=== PATIENT | male | born 1930 | race Caucasian/White ===

== ENCOUNTER 2016-11-19 11:11 | Inpatient (IN) ==
[2016-11-19 12:36] VITALS: BMI 27.6
[2016-11-19] MEDS ORDERED: TYLENOL PO PRN (13:48)
[2016-11-19] MEDS ORDERED: MORPHINE 4 MG/ML SYRINGE IVP PRN (13:48)
[2016-11-19] MEDS ORDERED: NITROSTAT SL PRN (13:48)
[2016-11-19] MEDS ORDERED: ATROPINE SULFATE PFS IVP PRN (13:48)
[2016-11-19] MEDS ORDERED: VISTARIL INJ IM PRN (13:48)
[2016-11-19 14:17] LABS: BASOPHILS % (AUTO) 0.2 % (0.0-3.0); EOSINOPHILS # (AUTO) 0.1 K/ul (0.0-0.7); EOSINOPHILS % (AUTO) 1.3 % (0.0-7.0); HEMATOCRIT 31.2 % (42.0-52.0); HEMOGLOBIN 10.6 g/dl (14.0-18.0); IMMATURE GRANULOCYTE % (AUTO) 1.1 % (0.0-5.0); LYMPHOCYTES # (AUTO) 0.9 K/uL (0.60-3.4); LYMPHOCYTES % (AUTO) 13.9 (10.0-50.0); MEAN CORPUSCULAR VOLUME 97.2 fl (80.0-94.0); MONOCYTES # (AUTO) 0.7 K/uL (0.4-2.0); MONOCYTES % (AUTO) 10.2 (0-10); NEUTROPHILS # (AUTO) 4.7 K/ul (2.0-6.9); NEUTROPHILS % (AUTO) 73.3; PLATELET COUNT 195 10^3/uL (140-440); RED BLOOD COUNT 3.21 10^6/ul (4.70-6.10); WHITE BLOOD COUNT 6.35 K/ul (4.2-10.2)
[2016-11-19 14:39] LABS: ALBUMIN 2.9 g/dL (3.4-5.0); ALBUMIN/GLOBULIN RATIO 0.73; ANION GAP 14.4; BILIRUBIN,TOTAL 0.31 mg/dL (0.00-1.20); BUN/CREATININE RATIO 9.78; CALCIUM 9.2 mg/dL (8.2-10.2); POTASSIUM 4.4 mmol/L (3.5-5.1); TOTAL PROTEIN 6.9 g/dL (5.8-8.1)
[2016-11-19 14:44] LABS: CREATININE 4.7 mg/dL (0.60-1.10)
[2016-11-19] MEDS: DEXTROSE 5%-1/2NS IV SOLUTION 1,000 ML IV SCH (15:17)
[2016-11-19] MEDS: ROCEPHIN 1 GM in SODIUM CHLORIDE 50 ML IV SCH (15:17)
[2016-11-19] MEDS: SOLU-CORTEF 100 MG IVP SCH ×2 (15:18→20:44)
[2016-11-19] MEDS: ZOFRAN 4 MG/2 ML IVP SCH ×2 (15:18→17:42)
[2016-11-19 16:27] LABS: TROPONIN I 0.052 ng/ml (0.0000-0.4000)
[2016-11-19] MEDS: PRED FORTE 1% OPTH SOL OP SCH ×2 (16:27→20:45)
--- NOTE | 2016-11-19 16:33 | DI ---
Exam: Single x-ray of the chest. Comparison: CTA thorax performed 11/02/2007. Chest x-ray performed 12/19/2015. Reason for exam: Congestion. FINDINGS: Parenchymal changes are seen consistent with chronic lung disease. There are innumerable pulmonary micronodules seen throughout the lung parenchyma with blunting of the left costophrenic a ngle. The cardiac silhouette is unchanged. Impression: 1. Similar appearing innumerable pulmonary micronodules seen throughout the parenchyma. Differenti al includes infectious, inflammatory, granulomatous, and neoplastic etiologies. If clinical concern exists, CT exam of the chest with intravenous contrast performed. 2. Blunting of the left costophrenic angle likely atelectasis or pneumonia.
[2016-11-19] MEDS: DUONEB NEB SCH ×2 (16:55→23:21)
[2016-11-19] MEDS ORDERED: ALBUTEROL 0.083% NEB NEB SCH (17:00)
[2016-11-19] MEDS: HUMULIN R SUBCUT PRN ×2 (17:34→22:48)
[2016-11-19 17:56] LABS: ADD URINE MICROSCOPIC YES; BILIRUBIN,URINE Negative (NEGATIVE); KETONES,URINE Negative (NEGATIVE); LEUKOCYTE ESTERASE ,URINE Negative (NEGATIVE); NITRITE,URINE Negative (NEGATIVE); PROTEIN,URINE 2+ (NEGATIVE); URINE, BLOOD 1+ (NEGATIVE)
[2016-11-19] MEDS: SODIUM BICARBONATE PO SCH (20:45)
[2016-11-19] MEDS: XALATAN OP SCH (20:45)
[2016-11-19] MEDS: ALPHAGAN P 0.15% OP SCH (20:45)
[2016-11-19] MEDS: LEVEMIR SUBCUT SCH (20:45)
[2016-11-19] MEDS: COSOPT OP SCH (20:46)
[2016-11-19] MEDS ORDERED: INSULIN DETEMIR 20 UNIT SQ SCH (21:00)
[2016-11-19 23:00] LABS: TROPONIN I 0.054 ng/ml (0.0000-0.4000)
[2016-11-20] MEDS: ZOFRAN 4 MG/2 ML IVP SCH ×4 (01:21→17:20)
[2016-11-20 04:39] LABS: BASOPHILS % (AUTO) 0.2 % (0.0-3.0); HEMATOCRIT 31.5 % (42.0-52.0); HEMOGLOBIN 10.6 g/dl (14.0-18.0); IMMATURE GRANULOCYTE % (AUTO) 0.9 % (0.0-5.0); LYMPHOCYTES # (AUTO) 0.6 K/uL (0.60-3.4); LYMPHOCYTES % (AUTO) 7.3 (10.0-50.0); MEAN CORPUSCULAR HEMOGLOBIN 32.8 pg (27.0-31.0); MEAN CORPUSCULAR HGB CONC 33.7 (31.8-35.4); MEAN CORPUSCULAR VOLUME 97.5 fl (80.0-94.0); MONOCYTES # (AUTO) 0.4 K/uL (0.4-2.0); MONOCYTES % (AUTO) 4.4 (0-10); NEUTROPHILS # (AUTO) 7.1 K/ul (2.0-6.9); NEUTROPHILS % (AUTO) 87.2; PLATELET COUNT 202 10^3/uL (140-440); RED BLOOD COUNT 3.23 10^6/ul (4.70-6.10); WHITE BLOOD COUNT 8.12 K/ul (4.2-10.2)
[2016-11-20] MEDS: DUONEB NEB SCH ×4 (05:10→23:26)
[2016-11-20 05:13] LABS: ALBUMIN 2.7 g/dL (3.4-5.0); ALBUMIN/GLOBULIN RATIO 0.68; ANION GAP 18.7; BILIRUBIN,TOTAL 0.27 mg/dL (0.00-1.20); BUN/CREATININE RATIO 10.61; CALCIUM 8.7 mg/dL (8.2-10.2); POTASSIUM 4.7 mmol/L (3.5-5.1); TOTAL PROTEIN 6.7 g/dL (5.8-8.1)
[2016-11-20 05:14] LABS: CREATININE 4.71 mg/dL (0.60-1.10)
[2016-11-20] MEDS: PROTONIX PO SCH (05:37)
[2016-11-20] MEDS: SOLU-CORTEF 100 MG IVP SCH ×3 (05:37→20:41)
[2016-11-20] MEDS: HUMULIN R SUBCUT PRN ×4 (05:38→20:44)
[2016-11-20] MEDS: DEXTROSE 5%-1/2NS IV SOLUTION 1,000 ML IV SCH ×2 (05:38→20:46)
[2016-11-20] MEDS ORDERED: HUMALOG MIX 75-25 SUBCUT SCH (08:00)
[2016-11-20] MEDS: COSOPT OP SCH ×3 (08:31→20:45)
[2016-11-20] MEDS: ALPHAGAN P 0.15% OP SCH ×2 (08:33→20:44)
[2016-11-20] MEDS: PRED FORTE 1% OPTH SOL OP SCH ×4 (08:33→20:45)
[2016-11-20] MEDS: HUMALOG SUBCUT SCH (08:38)
[2016-11-20] MEDS: FLOMAX PO SCH (08:38)
[2016-11-20] MEDS: ROCEPHIN 1 GM in SODIUM CHLORIDE 50 ML IV SCH (08:38)
[2016-11-20] MEDS: FOLIC ACID PO SCH (08:39)
[2016-11-20] MEDS: BALANCED B-100 PO SCH (08:39)
[2016-11-20] MEDS: ASPIRIN EC PO SCH (08:39)
[2016-11-20] MEDS: SODIUM BICARBONATE PO SCH ×2 (08:40→20:40)
[2016-11-20] MEDS: VITAMIN D PO SCH (08:40)
[2016-11-20] MEDS: ARAVA PO SCH ×2 (08:40→08:44)
[2016-11-20] MEDS: COZAAR PO SCH (08:41)
[2016-11-20] MEDS ORDERED: [UNRECOGNIZED DRUG - OTHER] PO SCH (09:00)
[2016-11-20] MEDS ORDERED: ASPIRIN EC PO SCH (09:00)
[2016-11-20] MEDS ORDERED: LEFLUNOMIDE 20 MG PO SCH (09:00)
[2016-11-20] MEDS ORDERED: VIT B COMP PO SCH (09:00)
[2016-11-20] MEDS ORDERED: FOLIC ACID 400 MG PO SCH (09:00)
[2016-11-20] MEDS ORDERED: CALCIUM CARB PO SCH (09:00)
[2016-11-20] MEDS ORDERED: NON-FORMULARY MEDICATION (Losartan Potassium 50 MG) PO SCH (09:00)
[2016-11-20] MEDS ORDERED: LASIX TAB PO SCH (09:00)
[2016-11-20] MEDS ORDERED: NON-FORMULARY MEDICATION (Cholecalciferol (Vitamin D3) [Vitamin D3] 2,000 UNIT) PO SCH (09:00)
--- NOTE | 2016-11-20 09:19 | PCM.PROG ---
Attending Provider: ATTENDING PROVIDER: Dr. DANAE TRINH DATE OF SERVICE: 11/20/16 SUBJECTIVE: This 86 year old WHITE/ M was hospitalized 11/19/16. The patient is seen with Monse, Nurse Practitioner. The patient is lying in bed, is alert. He states breathing is better today. No nausea this morning. The patient ate supper and lunch yesterday. Kidney functions still elevated. REVIEW OF SYSTEMS: CONSTITUTIONAL: Weakness. No night sweats. No fever or chills. HEENT: Eyes: No visual changes. No eye pain. No eye discharge. ENT: No runny nose. No epistaxis. No sinus pain. No odynophagia. No congestion. RESPIRATORY: Cough and congestion. No hemoptysis. No shortness of breath. CARDIOVASCULAR: No angina symptoms. No CHF symptoms. No atypical chest pain for CAD. No palpitations. No orthopnea.. GASTROINTESTINAL: No abdominal pain. No nausea or vomiting. No diarrhea or constipation. No hematemesis. No hematochezia. GENITOURINARY: No urgency. No frequency. No dysuria. No hematuria. No obstructive symptoms. No discharge. No pain. No significant abnormal bleeding. MUSCULOSKELETAL: No musculoskeletal pain; no joint swelling. NEUROLOGICAL: Awake, alert, oriented to time, place and person. No headache. No neck pain. No syncope. No seizures. No dizziness. PSYCHIATRIC: Not anxious. No depression. No suicidal thoughts. No homicidal thoughts. SKIN: No rash. No lesions. No wounds. ENDOCRINE: No unexplained weight loss. No weight gain. HEMATOLOGIC/LYMPHATIC: No anemia. No purpura. No petechiae. No prolonged or excessive bleeding. No palpable lymph nodes. PHYSICAL EXAMINATION: GENERAL: The patient is awake, alert and oriented, lying in bed in no distress. VITAL SIGNS: Temperature 96.7 F, Pulse 78, Respiratory Rate 18, BP 150/77, Pulse Ox 96% HEENT: Head normocephalic, atraumatic. Eyes: Extraocular muscles are intact. Pupils are equal, round and reactive to light and accommodation. Ears: No lesions. Nose appeared normal. Throat: No exudate or erythema. NECK: Supple. No JVD, no carotid bruit. No lymphadenopathy or thyromegaly. LUNGS: Diminished breath sounds with faint expiratory wheezing bilaterally; rales on the left. Percussion note normal. Chest symmetrical. HEART: S1, S2, no S3. Grade I/ systolic murmur. No cyanosis or clubbing. No ascites. Pulses: Dorsalis pedis and posterior tibial pulses +1 to +2 both sides. ABDOMEN: Soft. Non-tender. Bowel sounds active. No CVA tenderness. No mass felt. EXTREMITIES: No edema. Full range of motion of all extremities, equal. NEUROLOGIC: No focal deficit. Cranial nerves II through XII are grossly intact. No headache, no double vision or headache. SKIN: Not dry. Intact. Turgor-normal. LYMPHATIC: No palpable lymph nodes/no lymphedema. MUSCULOSKELETAL: Normal joints with no swelling. Muscle tone is normal. LAB REVIEW: 11/20/16 04:30 11/20/16 04:30 11/20/16 04:30: WBC 8.12, RBC 3.23 L, Hgb 10.6 L, Hct 31.5 L, MCV 97.5 H, MCH 32.8 H, MCHC 33.7, RDW Coeff of Meagan 12.7, Plt Count 202, Immature Gran % (Auto) 0.9, Neut % (Auto) 87.2, Lymph % (Auto) 7.3 L, [place] % (Auto) 4.4, Eos % (Auto) 0.0, Baso % (Auto) 0.2, Immature Gran # (Auto) 0.1, Neut # 7.1 H, Lymph # 0.6, [place] # 0.4, Eos # 0.0, Baso # 0.0, Sodium 137, Potassium 4.7, Chloride 102, Carbon Dioxide 21 L, Anion Gap 18.7, BUN 50 H, Creatinine 4.71 H*, Estimated GFR (MDRD) 12.00, BUN/Creatinine Ratio 10.61, Glucose 348 H D, Calcium 8.7, Total Bilirubin 0.27, AST 10 L, ALT 11 L, Alkaline Phosphatase 42 L, Total Protein 6.7, Albumin 2.7 L, Globulin 4.0, Albumin/Globulin Ratio 0.68 11/19/16 22:30: Total Creatine Kinase 81, Myoglobin 242, Troponin I 0.0540 11/19/16 17:45: Urine Color Yellow, Urine Clarity Clear, Urine pH 7.0, Ur Specific [place] 1.020, Urine Protein 2+, Urine Glucose (UA) 1+, Urine Ketones Negative, Urine Blood 1+, Urine Nitrite Negative, Urine Bilirubin Negative, Urine Urobilinogen 0.2, Ur Leukocyte Esterase Negative, Urine Microscopic RBC 2- 5, Ur Squamous Epith Cells Not present 11/19/16 14:00: WBC 6.35, RBC 3.21 L, Hgb 10.6 L, Hct 31.2 L, MCV 97.2 H, MCH 33.0 H, MCHC 34.0, RDW Coeff of [place] 12.9, Plt Count 195, Immature Gran % (Auto) 1.1, Neut % (Auto) 73.3, Lymph % (Auto) 13.9, [place] % (Auto) 10.2 H, Eos % (Auto ) 1.3, Baso % (Auto) 0.2, Immature Gran # (Auto) 0.1, Neut # 4.7, Lymph # 0.9, [place] # 0.7, Eos # 0.1, Baso # 0.0, Sodium 139, Potassium 4.4, Chloride 105, Carbon Dioxide 24, Anion Gap 14.4, BUN 46 H, Creatinine 4.70 H*, Estimated GFR ( MDRD) 12.00, BUN/Creatinine Ratio 9.78, Glucose 123 H, Calcium 9.2, Total Bilirubin 0.31, AST 14 L, ALT 12, Alkaline Phosphatase 47 L, Total Creatine Kinase 99, Myoglobin 330, Troponin I 0.0520, Total Protein 6.9, Albumin 2.9 L, Globulin 4.0, Albumin/Globulin Ratio 0.73 ASSESSMENT: 1. Pneumonia left lobe 2. Dehydration 3. Acute on chronic renal failure PLAN: 1. Hold Lasix today 2. CT scan of chest without contrast 3. Encourage fluids 4. Elevate legs Plan and coordination of the patient's care discussed in the presence of Die Casting Machine Operator and nurse. CONDITION: Stable SCRIBED BY: DAVID TERRY Claim Processor scribed while in presence of service performed by Dr. ADNAE TRINH/MONSE LYNCH APRN on 11/20/16 ([id number])
--- NOTE | 2016-11-20 13:15 | HP ---
DATE OF SERVICE: 11/19/16 HISTORY OF PRESENT ILLNESS: This is an 86-year-old male presented with cough times two weeks, shortness of breath, congestion, vomited this a.m., low grade temperature at home. No appetite. The patient was seen yesterday with acute bronchitis on Levaquin 250 mg. PAST MEDICAL HISTORY: 1. Diabetes mellitus Type 2 2. Rheumatoid arthritis 3. BPH 4. CKD 5. COPD 6. Anemia 7. Atrial fibrillation 8. CA prostate with radiation 2005 PAST SURGICAL HISTORY: 1. Back surgery 2. Eye surgery 3. Gallbladder, 2007 4. Appendix, 2007 REVIEW OF SYSTEMS: CONSTITUTIONAL: Fever, fatigue. HEENT: No sinus drainage, no sore throat. RESPIRATORY: Cough with yellow sputum. CARDIOVASCULAR: Positive for shortness of breath. No atypical chest pain for coronary artery disease. No angina, CHF symptoms, or palpitations. GASTROINTESTINAL: Nausea. No melena or abdominal pain. No GERD. GENITOURINARY: No hematuria, no prostatism, no polyuria. FURNITURE POLISHER: No blackout, no dizziness, no headache, no double vision. MUSCULOSKELETAL: Osteoarthritic pain. No joint swelling. ENDOCRINE: Weight loss of 2 lbs. SKIN: Dry. No rash. PSYCHIATRIC: Not anxious, no depression, no suicidal thoughts, no homicidal thoughts. SOCIAL HISTORY: ; nonsmoker; no alcohol use. Retired [employer]. Two children. FAMILY HISTORY: Father , [place]. Mother , [place] liver, colon. Sister one , [place] , diabetes mellitus. MEDICATIONS: (HOME) 1. Flomax 0.4 mg p.o. daily 2. Leflunomide 20 mg p.o. daily 3. Latanoprost 2.5 mL one drop OP bedtime 4. Sodium Bicarbonate 650 mg p.o. b.i.d. 5. Levemir Flex touch 6. Alphagan one drop OP b.i.d. 7. NovoLog Mix 70-30 (Flexpen) 20 units SQ q.d a.c. 8. Lasix 40 mg p.o. daily 9. Pred Forte 1 mL OP q.i.d. 10. Dorzolamide-Timolol eye drops one drop right eye b.i.d. 11. Cozaar 50 mg p.o. daily 12. Protonix 40 mg p.o. q.d a.c. 13. Vitamin B Comp and C/Calcium one tab p.o. daily 14. Vitamin D3 2,000 unit p.o. daily 15. Aspirin 81 mg p.o. daily 16. Folic Acid 400 mg p.o. daily ALLERGIES: LIPITOR, GABAPENTIN, OXYCODONE (VOMITING), PHYSICAL EXAMINATION: V/S: Pulse 82, B/P 112/62, temperature 97.5, 02 sat 94% on 02 2L/NC. Height 6'0 ", BMI 27.9, weight 206. GENERAL APPEARANCE: Oriented times three. Pallor positive. HEENT: Nasal congestion. NECK: No JVP, no bruits. RESPIRATORY: Lungs - decreased breath sounds, rales left lower lobe. CARDIOVASCULAR: Grade II/ murmur. S1, S2, no S3. No cyanosis, clubbing. No ascites. GI/ABDOMEN: Tenderness. Bowel sounds are active. EXTREMITIES: +1 pitting edema, pulses +1, equal. FURNITURE POLISHER: Deep tendon reflexes, sensory, motor and gait all normal. RECTAL/PROSTATE: Prostate 06/29 (less than 0.1). Colonoscopy 03/29 Dr. Delacruz. LABS: Sodium 139, potassium 4.4, BUN 46, creatinine 4.7, glucose 123, AST 14, ALT 12, protein 6.9, albumin 2.9, globulin 4.0, alkaline phosphatase 47. White count 6.3 , red blood cells 3.2, hemoglobin 10.6, hematocrit 31.2. ASSESSMENT: 1. PNEUMONITIS, LEFT 2. SHORTNESS OF BREATH 3. VOMITING 4. DEHYDRATION 5. CHRONIC RENAL FAILURE 7. RIGHT-SIDED PLEURITIC PAIN 8. CHRONIC BRONCHITIS 9. COPD 10. CHF 11. HISTORY OF PE - DR. ANAYA 12. DIABETES MELLITUS TYPE 2, A1C 7.1 ON 08/30 13. ANEMIA 14. PROSTATE CANCER 15. CHRONIC KIDNEY DISEASE STAGE 4 16. NEUROPATHY 17. DYSLIPIDEMIA 18. HISTORY OF BLADDER CA PLAN: 1. Admit 2. Elevate legs 3. Routine telemetry orders 4. Chest x-ray 5. Rocephin 1 gm IV q.24hr 6. CBC, CMP now and daily 7. 02 @ 2L p.r.n. 8. No ABGs (patient refusing) 9. Zofran 4 mg IV now and 6 hourly 10. Continue all home medications except Levaquin and Prednisone 11. Solu-Cortef 100 mg IV now and 8 hourly 12. Accu-Cheks with sliding scale 13. Blood cultures x2 14. Sputum cultures times two TIME SPENT: More than 70 minutes. MTDD
--- NOTE | 2016-11-20 14:45 | CT ---
EXAM: CT chest without contrast. HISTORY: Shortness of breath. Cough for 3 weeks. Histoplasmosis. COMPARISON: Radiograph [address] 07/12/2011. TECHNIQUE: Multiple axial images of the chest were obtained without intravenous contrast. Images w ere reformatted in the sagittal and coronal planes. FINDINGS: Evaluation for lymphadenopathy is limited due to lack of intravenous contrast per heart s ize is normal. Atherosclerotic calcifications are present. There is no pericardial effusion. Innumerable tiny noncalcified nodules seen throughout both lungs which have been present since 2011. New anteromedial left upper lobe nodule measures up to 1.8 x 0.8 cm on axial image 18. New anteri or right middle lobe nodule measures 2.7 x 1.9 cm on axial image 30. Tiny pleural effusion seen augustin aterally. No pneumothorax identified. Limited images of the upper abdomen demonstrate no acute abnormality. Degenerative changes present in the spine. IMPRESSION: New left upper lobe and right middle lobe nodules which could be infectious, inflammatory or neoplas tic. Innumerable bilateral pulmonary nodules are otherwise stable since 2011. Follow-up chest CT w ithin 3 months recommended for reassessment
[2016-11-20] MEDS: LEVEMIR SUBCUT SCH (20:43)
[2016-11-20] MEDS: XALATAN OP SCH (20:45)
[2016-11-21] MEDS: ZOFRAN 4 MG/2 ML IVP SCH ×3 (01:36→14:25)
[2016-11-21 04:55] LABS: BASOPHILS % (AUTO) 0.1 % (0.0-3.0); HEMATOCRIT 29.9 % (42.0-52.0); HEMOGLOBIN 10.1 g/dl (14.0-18.0); IMMATURE GRANULOCYTE % (AUTO) 1.4 % (0.0-5.0); LYMPHOCYTES # (AUTO) 0.7 K/uL (0.60-3.4); LYMPHOCYTES % (AUTO) 8.5 (10.0-50.0); MEAN CORPUSCULAR HEMOGLOBIN 32.8 pg (27.0-31.0); MEAN CORPUSCULAR HGB CONC 33.8 (31.8-35.4); MEAN CORPUSCULAR VOLUME 97.1 fl (80.0-94.0); MONOCYTES # (AUTO) 0.5 K/uL (0.4-2.0); NEUTROPHILS # (AUTO) 6.7 K/ul (2.0-6.9); PLATELET COUNT 175 10^3/uL (140-440); RED BLOOD COUNT 3.08 10^6/ul (4.70-6.10); WHITE BLOOD COUNT 7.97 K/ul (4.2-10.2)
[2016-11-21] MEDS: DUONEB NEB SCH ×4 (05:04→22:55)
[2016-11-21 05:20] LABS: ALBUMIN 2.7 g/dL (3.4-5.0); ALBUMIN/GLOBULIN RATIO 0.79; ANION GAP 15.4; BILIRUBIN,TOTAL 0.23 mg/dL (0.00-1.20); BUN/CREATININE RATIO 11.33; CALCIUM 8.6 mg/dL (8.2-10.2); POTASSIUM 4.4 mmol/L (3.5-5.1); TOTAL PROTEIN 6.1 g/dL (5.8-8.1)
[2016-11-21 05:21] LABS: CREATININE 4.06 mg/dL (0.60-1.10)
[2016-11-21] MEDS: SOLU-CORTEF 100 MG IVP SCH ×3 (05:28→20:47)
[2016-11-21] MEDS: HUMULIN R SUBCUT PRN ×2 (05:28→21:04)
[2016-11-21] MEDS: PROTONIX PO SCH (05:29)
[2016-11-21] MEDS ORDERED: SODIUM CHLORIDE 1,000 ML IV SCH (08:30)
[2016-11-21] MEDS: SODIUM BICARBONATE PO SCH ×2 (08:33→21:08)
[2016-11-21] MEDS: COSOPT OP SCH ×2 (08:34→21:11)
[2016-11-21] MEDS: FLOMAX PO SCH (08:34)
[2016-11-21] MEDS: ARAVA PO SCH (08:34)
[2016-11-21] MEDS: COZAAR PO SCH (08:34)
[2016-11-21] MEDS: FOLIC ACID PO SCH (08:34)
[2016-11-21] MEDS: ALPHAGAN P 0.15% OP SCH ×2 (08:34→21:11)
[2016-11-21] MEDS: ASPIRIN EC PO SCH (08:34)
[2016-11-21] MEDS: VITAMIN D PO SCH (08:34)
[2016-11-21] MEDS: BALANCED B-100 PO SCH (08:34)
[2016-11-21] MEDS: PRED FORTE 1% OPTH SOL OP SCH ×4 (08:34→21:11)
[2016-11-21] MEDS: HUMALOG SUBCUT SCH (08:38)
--- NOTE | 2016-11-21 09:19 | PCM.PROG ---
Attending Provider: ATTENDING PROVIDER: Dr. DANAE TRINH DATE OF SERVICE: 11/21/16 SUBJECTIVE: This 86 year old WHITE/ M was hospitalized 11/19/16. The patient is seen with Monse, Nurse Practitioner. The patient is sitting up in bed, is alert. He reports he is still coughing. He is tired. Kidney function is somewhat improved today. Sputum culture and sensitivity positive for E. coli with ESBL I will change IV antibiotics to Zosyn. REVIEW OF SYSTEMS: CONSTITUTIONAL: Weakness, fatigue. No night sweats. No fever or chills. HEENT: Eyes: No visual changes. No eye pain. No eye discharge. ENT: No runny nose. No epistaxis. No sinus pain. No odynophagia. No congestion. RESPIRATORY: Cough, nonproductive. No hemoptysis. No shortness of breath. CARDIOVASCULAR: No angina symptoms. No CHF symptoms. No atypical chest pain for CAD. No palpitations. No orthopnea.. GASTROINTESTINAL: No abdominal pain. No nausea or vomiting. No diarrhea or constipation. No hematemesis. No hematochezia. GENITOURINARY: No urgency. No frequency. No dysuria. No hematuria. No obstructive symptoms. No discharge. No pain. No significant abnormal bleeding. MUSCULOSKELETAL: No musculoskeletal pain; no joint swelling. NEUROLOGICAL: Awake, alert, oriented to time, place and person. No headache. No neck pain. No syncope. No seizures. No dizziness. PSYCHIATRIC: Not anxious. No depression. No suicidal thoughts. No homicidal thoughts. SKIN: No rash. No lesions. No wounds. ENDOCRINE: No unexplained weight loss. No weight gain. HEMATOLOGIC/LYMPHATIC: No anemia. No purpura. No petechiae. No prolonged or excessive bleeding. No palpable lymph nodes. PHYSICAL EXAMINATION: GENERAL: The patient is awake, alert and oriented, lying in bed in no distress. VITAL SIGNS: Temperature 97.5 F, Pulse 74, Respiratory Rate 16, BP 134/77, Pulse Ox 99% HEENT: Head normocephalic, atraumatic. Eyes: Extraocular muscles are intact. Pupils are equal, round and reactive to light and accommodation. Ears: No lesions. Nose appeared normal. Throat: No exudate or erythema. NECK: Supple. No JVD, no carotid bruit. No lymphadenopathy or thyromegaly. LUNGS: Diminished breath sounds with faint wheeze on the left. Percussion note normal. Chest symmetrical. HEART: Regular rate and rhythm. S1, S2, no S3. Grade I/ murmur. No cyanosis or clubbing. No ascites. Pulses: Dorsalis pedis and posterior tibial pulses +1 to +2 both sides. ABDOMEN: Soft. Non-tender. Bowel sounds active. No CVA tenderness. No mass felt. EXTREMITIES: No edema. Full range of motion of all extremities, equal. NEUROLOGIC: No focal deficit. Cranial nerves II through XII are grossly intact. No headache, no double vision or headache. SKIN: Not dry. Intact. Turgor-normal. LYMPHATIC: No palpable lymph nodes/no lymphedema. MUSCULOSKELETAL: Normal joints with no swelling. Muscle tone is normal. LAB REVIEW: 11/21/16 04:30 11/21/16 04:30 11/21/16 04:30: WBC 7.97, RBC 3.08 L, Hgb 10.1 L, Hct 29.9 L, MCV 97.1 H, MCH 32.8 H, MCHC 33.8, RDW Coeff of [place] 12.7, Plt Count 175, Immature Gran % (Auto) 1.4, Neut % (Auto) 84.0, Lymph % (Auto) 8.5 L, [place] % (Auto) 6.0, Eos % (Auto) 0.0, Baso % (Auto) 0.1, Immature Gran # (Auto) 0.1, Neut # 6.7, Lymph # 0.7, [place] # 0.5, Eos # 0.0, Baso # 0.0, Sodium 139, Potassium 4.4, Chloride 105, Carbon Dioxide 23, Anion Gap 15.4, BUN 46 H, Creatinine 4.06 H* D, Estimated GFR (MDRD) 14.00, BUN/Creatinine Ratio 11.33, Glucose 250 H D, Calcium 8.6, Total Bilirubin 0.23, AST 9 L, ALT 11 L, Alkaline Phosphatase 44 L, Total Protein 6.1, Albumin 2.7 L, Globulin 3.4, Albumin/Globulin Ratio 0.79 ASSESSMENT: 1. Sputum positive for E. coli/ESBL 2. Pneumonia, left lobe 3. Dehydration 4. Acute on chronic renal failure PLAN: 1. D/C Rocephin 2. Zosyn 2.25 q.6 - pharmacy to dose 3. Change IV fluids to NS 75 cc/hr 4. Contact precautions Plan and coordination of the patient's care discussed in the presence of Oracle Fusion Middleware Architect and nurse. CONDITION: Stable SCRIBED BY: DAVID TERRY Toe Stapler scribed while in presence of service performed by Dr. DANAE TRINH/MONSE LYNCH APRN on 11/21/16 ([id number])
[2016-11-21] MEDS: DEXTROSE 5%-1/2NS IV SOLUTION 1,000 ML IV SCH (11:37)
[2016-11-21] MEDS: ZOSYN 2.25 GM 2.25 GM in SODIUM CHLORIDE 100 ML IV SCH ×2 (13:20→21:02)
--- NOTE | 2016-11-21 13:40 | PN ---
DATE OF SERVICE:11/20/16 SUBJECTIVE: 86 year old white male hospitalized with acute bronchitis/pneumonitis and renal failure. The patient's renal status has stayed the same with creatinine of 4.7, BUN 50. The patient's bronchitis symptoms are a lot better and he is coughing much less. PHYSICAL EXAMINATION: GENERAL: The patient's appetite has improved and he says that he is feeling better. VITAL SIGNS: Blood pressure 150/77, oxygen saturation 96% with 2 liters. HEENT: Head normocephalic, atraumatic. Eyes: Extraocular muscles are intact. Pupils are equal, round and reactive to light and accommodation. Ears: No lesions. Nose appeared normal. Throat: No exudate or erythema. NECK: Supple. No JVD, no carotid bruit. No lymphadenopathy or thyromegaly. LUNGS: More air entry. Clear to auscultation. Percussion note normal. Chest symmetrical. HEART: S1, S2, no S3. No murmurs. No cyanosis or clubbing. No ascites. Pulses: Dorsalis pedis and posterior tibial pulses +1 to +2 both sides. ABDOMEN: Soft. Nontender. Bowel sounds active. No CVA tenderness. No mass felt. EXTREMITIES: No edema. Full range of motion of all extremities, equal. NEUROLOGIC: No focal deficit. Cranial nerves II through XII are grossly intact. No headache, no double vision or headache. SKIN: Not dry. Intact. Turgor - A lot better. LYMPHATIC: No palpable lymph nodes/no lymphedema. MUSCULOSKELETAL: Normal joints with no swelling. Muscle tone is normal. CONDITION: Stable, improving. LABS: The patient grew e-coli from his sputum. The patient's e-coli is ESBL The patient was seen and examined with Nurse Practitioner. PLAN: 1. Clinically with Rocephin the patient is better so we will stick to Rocephin. TIME SPENT: More than 30 minutes. Plan and coordination of the patient's care discussed in the presence of nurse. GABRIELLE
[2016-11-21] MEDS: LEVEMIR SUBCUT SCH (21:03)
[2016-11-21] MEDS: XALATAN OP SCH (21:11)
[2016-11-22] MEDS: SOLU-CORTEF 100 MG IVP SCH ×3 (04:24→20:43)
[2016-11-22] MEDS: ZOSYN 2.25 GM 2.25 GM in SODIUM CHLORIDE 100 ML IV SCH ×3 (04:40→20:41)
[2016-11-22] MEDS: DUONEB NEB SCH ×4 (04:54→22:38)
[2016-11-22 05:28] LABS: BASOPHILS % (AUTO) 0.4 % (0.0-3.0); HEMATOCRIT 30.6 % (42.0-52.0); HEMOGLOBIN 10.3 g/dl (14.0-18.0); IMMATURE GRANULOCYTE % (AUTO) 1.8 % (0.0-5.0); LYMPHOCYTES # (AUTO) 0.9 K/uL (0.60-3.4); LYMPHOCYTES % (AUTO) 10.3 (10.0-50.0); MEAN CORPUSCULAR HEMOGLOBIN 32.5 pg (27.0-31.0); MEAN CORPUSCULAR HGB CONC 33.7 (31.8-35.4); MEAN CORPUSCULAR VOLUME 96.5 fl (80.0-94.0); MONOCYTES # (AUTO) 0.6 K/uL (0.4-2.0); MONOCYTES % (AUTO) 7.1 (0-10); NEUTROPHILS # (AUTO) 6.8 K/ul (2.0-6.9); NEUTROPHILS % (AUTO) 80.4; PLATELET COUNT 190 10^3/uL (140-440); RED BLOOD COUNT 3.17 10^6/ul (4.70-6.10); WHITE BLOOD COUNT 8.45 K/ul (4.2-10.2)
[2016-11-22 05:44] LABS: ALBUMIN 2.7 g/dL (3.4-5.0); ALBUMIN/GLOBULIN RATIO 0.77; ANION GAP 17.3; BILIRUBIN,TOTAL 0.29 mg/dL (0.00-1.20); BUN/CREATININE RATIO 13.21; CALCIUM 8.5 mg/dL (8.2-10.2); POTASSIUM 4.3 mmol/L (3.5-5.1); TOTAL PROTEIN 6.2 g/dL (5.8-8.1)
[2016-11-22] MEDS: ZOFRAN 4 MG/2 ML IVP SCH ×5 (05:44→17:24)
[2016-11-22] MEDS: PROTONIX PO SCH (05:47)
[2016-11-22 05:50] LABS: CREATININE 3.86 mg/dL (0.60-1.10)
[2016-11-22] MEDS: HUMULIN R SUBCUT PRN ×4 (05:57→21:23)
[2016-11-22] MEDS: SODIUM BICARBONATE PO SCH ×2 (09:15→20:42)
[2016-11-22] MEDS: HUMALOG SUBCUT SCH (09:16)
[2016-11-22] MEDS: BALANCED B-100 PO SCH (09:16)
[2016-11-22] MEDS: VITAMIN D PO SCH (09:16)
[2016-11-22] MEDS: ARAVA PO SCH (09:16)
[2016-11-22] MEDS: FOLIC ACID PO SCH (09:16)
[2016-11-22] MEDS: FLOMAX PO SCH (09:16)
[2016-11-22] MEDS: ASPIRIN EC PO SCH (09:16)
[2016-11-22] MEDS: COZAAR PO SCH (09:16)
[2016-11-22] MEDS: ALPHAGAN P 0.15% OP SCH ×2 (09:18→20:48)
[2016-11-22] MEDS: COSOPT OP SCH ×2 (09:18→20:46)
[2016-11-22] MEDS: PRED FORTE 1% OPTH SOL OP SCH ×4 (09:20→20:55)
[2016-11-22] MEDS: TUSSIONEX PO SCH ×2 (12:03→20:41)
[2016-11-22] MEDS: LEVEMIR SUBCUT SCH (20:42)
[2016-11-22] MEDS: XALATAN OP SCH (20:48)
[2016-11-23] MEDS: ZOFRAN 4 MG/2 ML IVP SCH ×5 (00:14→23:29)
[2016-11-23] MEDS: ZOSYN 2.25 GM 2.25 GM in SODIUM CHLORIDE 100 ML IV SCH ×3 (04:13→20:21)
[2016-11-23] MEDS: SOLU-CORTEF 100 MG IVP SCH ×2 (04:14→12:36)
[2016-11-23] MEDS: DUONEB NEB SCH ×4 (04:54→22:59)
[2016-11-23 05:24] LABS: BASOPHILS % (AUTO) 0.4 % (0.0-3.0); HEMOGLOBIN 10.6 g/dl (14.0-18.0); IMMATURE GRANULOCYTE % (AUTO) 3.6 % (0.0-5.0); LYMPHOCYTES # (AUTO) 0.7 K/uL (0.60-3.4); LYMPHOCYTES % (AUTO) 8.1 (10.0-50.0); MEAN CORPUSCULAR HEMOGLOBIN 33.2 pg (27.0-31.0); MEAN CORPUSCULAR HGB CONC 34.2 (31.8-35.4); MEAN CORPUSCULAR VOLUME 97.2 fl (80.0-94.0); MONOCYTES # (AUTO) 0.6 K/uL (0.4-2.0); MONOCYTES % (AUTO) 7.4 (0-10); NEUTROPHILS # (AUTO) 6.7 K/ul (2.0-6.9); NEUTROPHILS % (AUTO) 80.5; PLATELET COUNT 181 10^3/uL (140-440); RED BLOOD COUNT 3.19 10^6/ul (4.70-6.10); WHITE BLOOD COUNT 8.29 K/ul (4.2-10.2)
[2016-11-23] MEDS: PROTONIX PO SCH (05:29)
[2016-11-23 05:48] LABS: ALBUMIN 2.7 g/dL (3.4-5.0); ALBUMIN/GLOBULIN RATIO 0.79; ANION GAP 10.5; BILIRUBIN,TOTAL 0.23 mg/dL (0.00-1.20); BUN/CREATININE RATIO 14.43; CALCIUM 8.4 mg/dL (8.2-10.2); POTASSIUM 4.5 mmol/L (3.5-5.1); TOTAL PROTEIN 6.1 g/dL (5.8-8.1)
[2016-11-23 05:49] LABS: CREATININE 3.81 mg/dL (0.60-1.10)
[2016-11-23] MEDS: HUMULIN R SUBCUT PRN ×3 (06:06→17:11)
[2016-11-23] MEDS: BALANCED B-100 PO SCH (08:02)
[2016-11-23] MEDS: ASPIRIN EC PO SCH (08:02)
[2016-11-23] MEDS: VITAMIN D PO SCH (08:02)
[2016-11-23] MEDS: FLOMAX PO SCH (08:02)
[2016-11-23] MEDS: COZAAR PO SCH (08:02)
[2016-11-23] MEDS: ARAVA PO SCH (08:02)
[2016-11-23] MEDS: SODIUM BICARBONATE PO SCH ×2 (08:02→20:20)
[2016-11-23] MEDS: FOLIC ACID PO SCH (08:02)
[2016-11-23] MEDS: HUMALOG SUBCUT SCH (08:03)
[2016-11-23] MEDS: COSOPT OP SCH ×2 (08:04→20:27)
[2016-11-23] MEDS: TUSSIONEX PO SCH ×2 (08:04→20:19)
[2016-11-23] MEDS: ALPHAGAN P 0.15% OP SCH ×2 (08:04→20:27)
[2016-11-23] MEDS: PRED FORTE 1% OPTH SOL OP SCH ×4 (09:31→20:29)
[2016-11-23] MEDS: PREDNISONE PO SCH (17:11)
[2016-11-23] MEDS: LEVEMIR SUBCUT SCH (20:25)
[2016-11-23] MEDS: XALATAN OP SCH (20:28)
[2016-11-24] MEDS: HUMULIN R SUBCUT PRN ×4 (00:03→21:12)
[2016-11-24] MEDS: ZOSYN 2.25 GM 2.25 GM in SODIUM CHLORIDE 100 ML IV SCH ×3 (04:35→21:13)
[2016-11-24 04:45] LABS: BASOPHILS % (AUTO) 0.3 % (0.0-3.0); EOSINOPHILS % (AUTO) 0.1 % (0.0-7.0); HEMATOCRIT 30.5 % (42.0-52.0); HEMOGLOBIN 10.5 g/dl (14.0-18.0); IMMATURE GRANULOCYTE % (AUTO) 4.7 % (0.0-5.0); LYMPHOCYTES # (AUTO) 0.8 K/uL (0.60-3.4); LYMPHOCYTES % (AUTO) 9.2 (10.0-50.0); MEAN CORPUSCULAR HEMOGLOBIN 33.1 pg (27.0-31.0); MEAN CORPUSCULAR HGB CONC 34.4 (31.8-35.4); MEAN CORPUSCULAR VOLUME 96.2 fl (80.0-94.0); MONOCYTES # (AUTO) 0.9 K/uL (0.4-2.0); MONOCYTES % (AUTO) 9.7 (0-10); NEUTROPHILS # (AUTO) 6.9 K/ul (2.0-6.9); PLATELET COUNT 173 10^3/uL (140-440); RED BLOOD COUNT 3.17 10^6/ul (4.70-6.10); WHITE BLOOD COUNT 9.01 K/ul (4.2-10.2)
[2016-11-24] MEDS: DUONEB NEB SCH ×4 (05:04→23:09)
[2016-11-24 05:18] LABS: ALBUMIN 2.6 g/dL (3.4-5.0); ALBUMIN/GLOBULIN RATIO 0.79; ANION GAP 13.2; BILIRUBIN,TOTAL 0.27 mg/dL (0.00-1.20); BUN/CREATININE RATIO 14.35; CALCIUM 8.3 mg/dL (8.2-10.2); POTASSIUM 4.2 mmol/L (3.5-5.1); TOTAL PROTEIN 5.9 g/dL (5.8-8.1)
[2016-11-24 05:35] LABS: CREATININE 4.04 mg/dL (0.60-1.10)
[2016-11-24] MEDS: ZOFRAN 4 MG/2 ML IVP SCH ×4 (05:50→23:16)
[2016-11-24] MEDS: PROTONIX PO SCH (05:51)
[2016-11-24] MEDS: TUSSIONEX PO SCH ×2 (08:40→21:14)
[2016-11-24] MEDS: COZAAR PO SCH (08:41)
[2016-11-24] MEDS: ASPIRIN EC PO SCH (08:41)
[2016-11-24] MEDS: VITAMIN D PO SCH (08:41)
[2016-11-24] MEDS: ARAVA PO SCH (08:41)
[2016-11-24] MEDS: PREDNISONE PO SCH ×3 (08:41→16:45)
[2016-11-24] MEDS: BALANCED B-100 PO SCH (08:41)
[2016-11-24] MEDS: FLOMAX PO SCH (08:41)
[2016-11-24] MEDS: SODIUM BICARBONATE PO SCH ×2 (08:41→21:13)
[2016-11-24] MEDS: HUMALOG SUBCUT SCH (08:42)
[2016-11-24] MEDS: FOLIC ACID PO SCH (08:42)
[2016-11-24] MEDS: COSOPT OP SCH ×2 (08:59→21:13)
[2016-11-24] MEDS: PRED FORTE 1% OPTH SOL OP SCH ×4 (09:00→21:13)
[2016-11-24] MEDS: ALPHAGAN P 0.15% OP SCH ×2 (09:00→21:13)
--- NOTE | 2016-11-24 11:11 | PCM.PROG ---
Attending Provider: ATTENDING PROVIDER: Dr. DANAE TRINH DATE OF SERVICE: 11/24/16 SUBJECTIVE: This 86 year old WHITE/ M was hospitalized 11/19/16. The patient is seen with Monse, Nurse Practitioner. The patient is lying in bed, alert. He states he is feeling better, appetite is good. He states cough is some better after changing antibiotics, no fever. Mild shortness of breath. Echo today. REVIEW OF SYSTEMS: CONSTITUTIONAL: Weakness. No night sweats. No fever or chills. HEENT: Eyes: No visual changes. No eye pain. No eye discharge. ENT: No runny nose. No epistaxis. No sinus pain. No odynophagia. No congestion. RESPIRATORY: Cough and congestion. No hemoptysis. No shortness of breath. CARDIOVASCULAR: No angina symptoms. No CHF symptoms. No atypical chest pain for CAD. No palpitations. No orthopnea.. GASTROINTESTINAL: No abdominal pain. No nausea or vomiting. No diarrhea or constipation. No hematemesis. No hematochezia. GENITOURINARY: No urgency. No frequency. No dysuria. No hematuria. No obstructive symptoms. No discharge. No pain. No significant abnormal bleeding. MUSCULOSKELETAL: No musculoskeletal pain; no joint swelling. NEUROLOGICAL: Awake, alert, oriented to time, place and person. No headache. No neck pain. No syncope. No seizures. No dizziness. PSYCHIATRIC: Not anxious. No depression. No suicidal thoughts. No homicidal thoughts. SKIN: No rash. No lesions. No wounds. ENDOCRINE: No unexplained weight loss. No weight gain. HEMATOLOGIC/LYMPHATIC: No anemia. No purpura. No petechiae. No prolonged or excessive bleeding. No palpable lymph nodes. PHYSICAL EXAMINATION: GENERAL: The patient is awake, alert and oriented, lying in bed in no distress. VITAL SIGNS: Temperature 97.5 F, Pulse 90, Respiratory Rate 18, BP 149/75, Pulse Ox 98% HEENT: Head normocephalic, atraumatic. Eyes: Extraocular muscles are intact. Pupils are equal, round and reactive to light and accommodation. Ears: No lesions. Nose appeared normal. Throat: No exudate or erythema. NECK: Supple. No JVD, no carotid bruit. No lymphadenopathy or thyromegaly. LUNGS: Bilateral rhonchi. Percussion note normal. Chest symmetrical. HEART: S1, S2, no S3. No murmurs. No cyanosis or clubbing. No ascites. Pulses: Dorsalis pedis and posterior tibial pulses +1 to +2 both sides. ABDOMEN: Soft. Non-tender. Bowel sounds active. No CVA tenderness. No mass felt. EXTREMITIES: No edema. Full range of motion of all extremities, equal. NEUROLOGIC: No focal deficit. Cranial nerves II through XII are grossly intact. No headache, no double vision or headache. SKIN: Not dry. Intact. Turgor-normal. LYMPHATIC: No palpable lymph nodes/no lymphedema. MUSCULOSKELETAL: Normal joints with no swelling. Muscle tone is normal. LAB REVIEW: 11/24/16 04:44 11/24/16 04:44 11/24/16 04:44: Sodium 135 L, Potassium 4.2, Chloride 105, Carbon Dioxide 21 L, Anion Gap 13.2, BUN 58 H, Creatinine 4.04 H*, Estimated GFR (MDRD) 14.00, BUN/ Creatinine Ratio 14.35, Glucose 250 H, Calcium 8.3, Total Bilirubin 0.27, AST 10 L, ALT 12, Alkaline Phosphatase 40 L, Total Protein 5.9, Albumin 2.6 L, Globulin 3.3, Albumin/Globulin Ratio 0.79 11/24/16 04:44: WBC 9.01, RBC 3.17 L, Hgb 10.5 L, Hct 30.5 L, MCV 96.2 H, MCH 33.1 H, MCHC 34.4, RDW Coeff of [place] 12.8, Plt Count 173, Immature Gran % (Auto) 4.7, Neut % (Auto) 76.0, Lymph % (Auto) 9.2 L, [place] % (Auto) 9.7, Eos % (Auto) 0.1, Baso % (Auto) 0.3, Immature Gran # (Auto) 0.4, Neut # 6.9, Lymph # 0.8, [place] # 0.9, Eos # 0.0, Baso # 0.0 ASSESSMENT: 1. Sputum positive for E. coli/ESBL 2. Pneumonia, left lobe 3. Dehydration 4. Acute on chronic renal failure PLAN: 1. Echocardiogram today. 2. Continue IV Zosyn. 3. Continue nebs. 4. Possible discharge tomorrow. Plan and coordination of the patient's care discussed in the presence of Ironworker Apprentice and nurse. CONDITION: Stable SCRIBED BY: DAVID TERRY Smoking Pipe Liner scribed while in presence of service performed by Dr. DANAE TRINH/MARILOU LYNCH APRN on 11/24/16 ([id number])
--- NOTE | 2016-11-24 13:26 | PN ---
DATE OF SERVICE: 11/21/16 SUBJECTIVE: The patient was seen and examined with Nurse Practitioner and Press Operator [employer]. The patient is an 86 year old white male. His condition appears to have worsened somewhat with greenish sputum production. The patient had NSBL e-coli, we will change it to Zosyn. Discontinue Rocephin. His kidney functions are stable with creatinine of 4, BUN 46 with GFR 42. His Co2 is 23 and doesn't seem to be in acidosis. The patient doesn't have any fluid overload and we will discontinue IV fluids. CONDITION: Stable. TIME SPENT: More than 30 minutes. Plan and coordination of the patient's care discussed in the presence of nurse. GABRIELLE
--- NOTE | 2016-11-24 15:30 | PN ---
DATE OF SERVICE: 11/22/16 SUBJECTIVE: The patient is an 86 year old white male hospitalized with acute pneumonitis/ bronchitis, respiratory failure. The patient's condition had worsened to some extent yesterday but today he looks 100% better. REVIEW OF SYSTEMS: CONSTITUTIONAL: No night sweats. No fatigue, malaise, lethargy. No fever or chills. HEENT: Eyes: No visual changes. No eye pain. No eye discharge. ENT: No runny nose. No epistaxis. No sinus pain. No sore throat. No odynophagia. No congestion. RESPIRATORY: Mild cough, no congestion. No hemoptysis. No shortness of breath. CARDIOVASCULAR: No angina symptoms. No CHF symptoms. No atypical chest pain for CAD. No palpitations. No orthopnea. No PND. GASTROINTESTINAL: No abdominal pain. No nausea or vomiting. No diarrhea or constipation. No hematemesis. No hematochezia. Appetite is better. GENITOURINARY: No urgency. No frequency. No dysuria. No hematuria. No obstructive symptoms. No discharge. No pain. No significant abnormal bleeding. MUSCULOSKELETAL: No musculoskeletal pain; no joint swelling. NEUROLOGICAL: No headache. No neck pain. No syncope. No seizures. No dizziness. PSYCHIATRIC: Not anxious. No depression. No suicidal thoughts. No homicidal thoughts. SKIN: No rash. No lesions. No wounds. ENDOCRINE: No unexplained weight loss. No weight gain. HEMATOLOGIC/LYMPHATIC: No anemia. No purpura. No petechiae. No prolonged or excessive bleeding. No palpable lymph nodes. PHYSICAL EXAMINATION: GENERAL: The patient is oriented to time, place and person. VITAL SIGNS: Temperature 97.3, pulse 79, respiratory rate 14, blood pressure 150/78 with pulse ox 100%. HEENT: Head normocephalic, atraumatic. Eyes: Extraocular muscles are intact. Pupils are equal, round and reactive to light and accommodation. Ears: No lesions. Nose appeared normal. Throat: No exudate or erythema. NECK: Supple. No JVD, no carotid bruit. No lymphadenopathy or thyromegaly. LUNGS: Decreased breath sounds but clear to auscultation. Percussion note normal. Chest symmetrical. HEART: S1, S2, no S3. No murmurs. No cyanosis or clubbing. No ascites. Pulses: Dorsalis pedis and posterior tibial pulses +1 to +2 both sides. ABDOMEN: Soft. Nontender. Bowel sounds active. No CVA tenderness. No mass felt. EXTREMITIES: No edema. Full range of motion of all extremities, equal. NEUROLOGIC: No focal deficit. Cranial nerves II through XII are grossly intact. No headache, no double vision or headache. SKIN: Not dry. Intact. Turgor - normal. LYMPHATIC: No palpable lymph nodes/no lymphedema. MUSCULOSKELETAL: Normal joints with no swelling. Muscle tone is normal. LABS: Creatinine 3.8, BUN 51, potassium 4.3, hgb 10.3. ASSESSMENT: 1. Acute respiratory failure 2. Acute bronchitis 3. Dehydration 4. Chronic lung disease 5. Anemia 6. Chronic renal failure PLAN: 1. Give Tussionex one teaspoon full twice a day for cough 2. Continue all the antibiotics especially Zosyn seems to be working well. 3. Continue Steroids 4. NEBS treatment TIME SPENT: More than 30 minutes. Plan and coordination of the patient's care discussed in the presence of nurse. GABRIELLE
[2016-11-24] MEDS: LEVEMIR SUBCUT SCH (21:11)
[2016-11-24] MEDS: XALATAN OP SCH (21:13)
[2016-11-25] MEDS: ZOSYN 2.25 GM 2.25 GM in SODIUM CHLORIDE 100 ML IV SCH (04:03)
[2016-11-25 04:49] LABS: BASOPHILS # (AUTO) 0.1 K/uL (0-0.2); BASOPHILS % (AUTO) 0.5 % (0.0-3.0); EOSINOPHILS % (AUTO) 0.2 % (0.0-7.0); HEMATOCRIT 31.4 % (42.0-52.0); HEMOGLOBIN 10.6 g/dl (14.0-18.0); LYMPHOCYTES # (AUTO) 0.9 K/uL (0.60-3.4); LYMPHOCYTES % (AUTO) 9.5 (10.0-50.0); MEAN CORPUSCULAR HEMOGLOBIN 32.9 pg (27.0-31.0); MEAN CORPUSCULAR HGB CONC 33.8 (31.8-35.4); MEAN CORPUSCULAR VOLUME 97.5 fl (80.0-94.0); MONOCYTES # (AUTO) 0.9 K/uL (0.4-2.0); MONOCYTES % (AUTO) 9.4 (0-10); NEUTROPHILS % (AUTO) 75.4; PLATELET COUNT 169 10^3/uL (140-440); RED BLOOD COUNT 3.22 10^6/ul (4.70-6.10); WHITE BLOOD COUNT 9.34 K/ul (4.2-10.2)
[2016-11-25] MEDS: DUONEB NEB SCH ×2 (05:00→11:08)
[2016-11-25 05:14] LABS: ALBUMIN 2.6 g/dL (3.4-5.0); ALBUMIN/GLOBULIN RATIO 0.81; ANION GAP 11.8; BILIRUBIN,TOTAL 0.29 mg/dL (0.00-1.20); BUN/CREATININE RATIO 16.45; CALCIUM 8.3 mg/dL (8.2-10.2); POTASSIUM 4.8 mmol/L (3.5-5.1); TOTAL PROTEIN 5.8 g/dL (5.8-8.1)
[2016-11-25 05:18] LABS: CREATININE 4.01 mg/dL (0.60-1.10)
[2016-11-25] MEDS: PROTONIX PO SCH (05:49)
[2016-11-25] MEDS: HUMULIN R SUBCUT PRN (05:49)
[2016-11-25] MEDS: ZOFRAN 4 MG/2 ML IVP SCH (05:49)
[2016-11-25] MEDS: PRED FORTE 1% OPTH SOL OP SCH (08:05)
[2016-11-25] MEDS: TUSSIONEX PO SCH (08:05)
[2016-11-25] MEDS: ALPHAGAN P 0.15% OP SCH (08:05)
[2016-11-25] MEDS: COSOPT OP SCH (08:05)
[2016-11-25] MEDS: FLOMAX PO SCH (08:06)
[2016-11-25] MEDS: FOLIC ACID PO SCH (08:06)
[2016-11-25] MEDS: COZAAR PO SCH (08:06)
[2016-11-25] MEDS: ARAVA PO SCH (08:06)
[2016-11-25] MEDS: PREDNISONE PO SCH (08:06)
[2016-11-25] MEDS: SODIUM BICARBONATE PO SCH (08:06)
[2016-11-25] MEDS: BALANCED B-100 PO SCH (08:06)
[2016-11-25] MEDS: ASPIRIN EC PO SCH (08:06)
[2016-11-25] MEDS: HUMALOG SUBCUT SCH (08:07)
[2016-11-25] MEDS: VITAMIN D PO SCH (08:07)
[2016-11-25 10:23] VITALS: BP 142/64; TEMP 97.4
--- NOTE | 2016-11-25 10:28 | CM.DICTOOL ---
ADMISSION: 11/19/16 11:11 DISCHARGE: 11/25/16 DATE OF SERVICE: 11/25/16 FINAL DIAGNOSIS PNEUMONIA - E.COLI/ESBL SPUTUM DEHYDRATION ACUTE ON CHRONIC RENAL FAILURE (DR. 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 CANCER BY HISTORY DM, TYPE 2 ATRIAL FIBRILLATION ANEMIA DYSLIPIDEMIA NEUROPATHY ARTHRITIS GLAUCOMA CATARACT EXTRACTIONS, 2014 AND 2016 CHOLECYSTECTOMY, 2010 APPENDECTOMY, 2009 LAST VITALS Temp Pulse Resp BP Pulse Ox 97.0 F L 83 20 155/78 H 98 11/25/16 05:34 11/25/16 05:34 11/25/16 05:34 11/25/16 05:34 11/25/16 05:34 ACTIVE MEDICATIONS Albuterol (Neb) 1 vial NEB RTQ8H [facility] Last Admin: 11/25/16 05:00 Dose: 1 vial Aspirin (Aspirin Ec) 81 mg PO DAILYWM [facility] Last Admin: 11/25/16 08:06 Dose: 81 mg Brimonidine Tartrate (Alphagan P 0.15%) 1 drop OP BID [facility] Last Admin: 11/25/16 08:05 Dose: 1 drop Cholecalciferol (Vitamin D) 2,000 unit PO DAILY [facility] Last Admin: 11/25/16 08:07 Dose: 2,000 unit Dorzolamide/Timolol (Cosopt) 1 drop OP BID [facility] Last Admin: 11/25/16 08:05 Dose: 1 drop Folic Acid (Folic Acid) 0.5 mg PO DAILY [facility] Last Admin: 11/25/16 08:06 Dose: 0.5 mg Furosemide (Lasix) 40 mg PO DAILY Insulin Detemir (Levemir) 20 unit SUBCUT BEDTIME [facility] Last Admin: 11/24/16 21:11 Dose: 20 unit Insulin Human Aspart Protam & Aspart (Novolog Mix 70-30) 20 unit SUBCUT QDAC [facility] Last Admin: 11/25/16 08:07 Dose: 20 unit Latanoprost (Xalatan) 1 drop OP BEDTIME [facility] Last Admin: 11/24/16 21:13 Dose: 1 drop Leflunomide (Arava) 20 mg PO DAILY [facility] Last Admin: 11/25/16 08:06 Dose: 20 mg Losartan Potassium (Cozaar) 50 mg PO DAILY [facility] Last Admin: 11/25/16 08:06 Dose: 50 mg Pantoprazole Sodium (Protonix) 40 mg PO QDAC [facility] Last Admin: 11/25/16 05:49 Dose: 40 mg Prednisolone Acetate (Pred Forte 1% Opth Desiree) 1 drop OP QID [facility] Last Admin: 11/25/16 08:05 Dose: 1 drop Prednisone (Prednisone) 20 mg PO TIDWM X 2 DAYS, THEN 10 MG PO BIDWM X 5 DAYS [facility] (NEW RX) Last Admin: 11/25/16 08:06 Dose: 10 mg Sodium Bicarbonate (Sodium Bicarbonate) 650 mg PO BID [facility] Last Admin: 11/25/16 08:06 Dose: 650 mg Tamsulosin HCl (Flomax) 0.4 mg PO DAILY [facility] Last Admin: 11/25/16 08:06 Dose: 0.4 mg Vitamin B Complex (Balanced B-100) 1 tab PO DAILY [facility] Last Admin: 11/25/16 08:06 Dose: 1 tab ALLERGIES oxycodone Adverse Reaction (Intermediate, Verified 12/19/15 10:42) Vomiting Androgenic Anabolic Steroid Adverse Reaction (Verified 12/19/15 10:42) Unknown atorvastatin calcium [From Lipitor] Adverse Reaction (Verified 12/19/15 10:42) Unknown gabapentin Adverse Reaction (Verified 12/19/15 10:42) Unknown NEW PRESCRIPTIONS: AUGMENTIN 500 MG, TAKE ONE TABLET BY MOUTH EVERY 12 HOURS FOR 7 DAYS WITH FOOD PREDNISONE 20 MG, TAKE ONE TABLET BY MOUTH WITH FOOD TWICE DAILY FOR 2 DAYS, THEN 10 MG BY MOUTH WITH FOOD TWICE DAILY FOR 5 DAYS TUSSIONEX, TAKE 5 ML BY MOUTH EVERY 12 HOURS NEEDED (PRN) FOR COUGHING X 7 DAYS ONLY SMOKING: NONSMOKER DISEASE SPECIFIC EDUCATION: PNEUMONIA E-COLI/ESBL (SPUTUM) RENAL FAILURE HOME MEDICATIONS NEW MEDICATIONS OXYGEN AND NEB TREATMENTS FOLLOW UP LAB REVIEW: 11/25/16 04:46 11/25/16 04:46 11/25/16 04:46: Sodium 137, Potassium 4.8, Chloride 107, Carbon Dioxide 23, Anion Gap 11.8, BUN 66 H*, Creatinine 4.01 H*, Estimated GFR (MDRD) 14.00, BUN/ Creatinine Ratio 16.45, Glucose 254 H, Calcium 8.3, Total Bilirubin 0.29, AST 14 L, ALT 17, Alkaline Phosphatase 55 L, Total Protein 5.8, Albumin 2.6 L, Globulin 3.2, Albumin/Globulin Ratio 0.81 11/25/16 04:46: WBC 9.34, RBC 3.22 L, Hgb 10.6 L, Hct 31.4 L, MCV 97.5 H, MCH 32.9 H, MCHC 33.8, RDW Coeff of Meagan 13.0, Plt Count 169, Immature Gran % (Auto) 5.0, Neut % (Auto) 75.4, Lymph % (Auto) 9.5 L, [place] % (Auto) 9.4, Eos % (Auto) 0.2, Baso % (Auto) 0.5, Immature Gran # (Auto) 0.5, Neut # 7.0 H, Lymph # 0.9, [place] # 0.9, Eos # 0.0, Baso # 0.1 PLAN: DISCHARGE HOME TODAY RETURN TO SEE DR. TRINH ON 11/28/16 AT 2:45 P.M. KEEP YOUR APPOINTMENT WITH DR. ODELL ([place]) ON 11/27/16 RESUME YOUR HOME MEDICATIONS PER LIST PROVIDED BY THE NURSING STAFF NEW PRESCRIPTIONS: AUGMENTIN 500 MG, TAKE ONE TABLET BY MOUTH EVERY 12 HOURS FOR 7 DAYS WITH FOOD PREDNISONE 20 MG, TAKE ONE TABLET BY MOUTH WITH FOOD TWICE DAILY FOR 2 DAYS, THEN 10 MG BY MOUTH WITH FOOD TWICE DAILY FOR 5 DAYS TUSSIONEX, TAKE 5 ML BY MOUTH EVERY 12 HOURS NEEDED (PRN) FOR COUGHING X 7 DAYS ACTIVITY: USE YOUR HOME OXYGEN CONTINUALLY DIRECTED ADMINISTER NEBULIZER TREATMENTS (ALBUTEROL) THREE TIMES DAILY DIET: CONSISTENT CARBS RENAL FAILURE APPROPRIATE SUMMARY: THE PATIENT IS ALERT AND ORIENTED X3. HE CURRENTLY RESIDES AT HOME WITH HIS NIECE. HIS SPOUSE IS A RESIDENT AT A LOCAL ALF. MR. SILVERMAN IS INDEPENDENT WITH ADL'S. HIS NIECE ASSISTS WITH HOMEMAKING CHORES AND ERRANDS. MR SILVERMAN HAS HOME OXYGEN, NEBULIZER AND MEDICATIONS FOR BREATHING TREATMENTS, ROLLING WALKER, SHOWER CHAIR AND BEDSIDE COMMODE AT HOME. HE DOES NOT UTILIZE ANY HOME HEALTH SERVICES AT THIS TIME. HE DESIRES TO RETURN TO HIS HOME AT DISCHARGE. HIS SKIN TURGOR IS FAIR TO GOOD. HE HAS NO DECUBITUS ULCERS AT DISCHARGE AND NO PERIPHERAL EDEMA PRESENT. HE IS AWARE AND AGREEABLE FOR DISCHARGE HOME TODAY. CURRENT CODE STATUS: DO NOT RESUSCITATE SUSANA LYNCH APRN DANAE TRINH M.D.
--- NOTE | 2016-11-25 13:33 | PCM.PROG ---
Attending Provider: ATTENDING PROVIDER: Dr. DANAE TRINH DATE OF SERVICE: 11/25/16 SUBJECTIVE: This 86 year old WHITE/ M was hospitalized 11/19/16. The patient is seen with Monse, Nurse Practitioner. The patient is lying in bed, alert. He states he feels like going home. He has been up and and about. He has no fever and is eating well. REVIEW OF SYSTEMS: CONSTITUTIONAL: No night sweats. No fatigue, malaise, lethargy. No fever or chills. HEENT: Eyes: No visual changes. No eye pain. No eye discharge. ENT: No runny nose. No epistaxis. No sinus pain. No odynophagia. No congestion. RESPIRATORY: Cough and congestion. No hemoptysis. No shortness of breath. CARDIOVASCULAR: No angina symptoms. No CHF symptoms. No atypical chest pain for CAD. No palpitations. No orthopnea.. GASTROINTESTINAL: No abdominal pain. No nausea or vomiting. No diarrhea or constipation. No hematemesis. No hematochezia. GENITOURINARY: No urgency. No frequency. No dysuria. No hematuria. No obstructive symptoms. No discharge. No pain. No significant abnormal bleeding. MUSCULOSKELETAL: No musculoskeletal pain; no joint swelling. NEUROLOGICAL: Awake, alert, oriented to time, place and person. No headache. No neck pain. No syncope. No seizures. No dizziness. PSYCHIATRIC: Not anxious. No depression. No suicidal thoughts. No homicidal thoughts. SKIN: No rash. No lesions. No wounds. ENDOCRINE: No unexplained weight loss. No weight gain. HEMATOLOGIC/LYMPHATIC: No anemia. No purpura. No petechiae. No prolonged or excessive bleeding. No palpable lymph nodes. PHYSICAL EXAMINATION: GENERAL: The patient is awake, alert and oriented, lying/sitting in bed in no distress. VITAL SIGNS: Temperature 97.0 F, Pulse 83, Respiratory Rate 20, BP 155/78, Pulse Ox 98% HEENT: Head normocephalic, atraumatic. Eyes: Extraocular muscles are intact. Pupils are equal, round and reactive to light and accommodation. Ears: No lesions. Nose appeared normal. Throat: No exudate or erythema. NECK: Supple. No JVD, no carotid bruit. No lymphadenopathy or thyromegaly. LUNGS: Diminished breath sounds. Rhonchi on the left. Percussion note normal. Chest symmetrical. HEART: S1, S2, no S3. No murmurs. No cyanosis or clubbing. No ascites. Pulses: Dorsalis pedis and posterior tibial pulses +1 to +2 both sides. ABDOMEN: Soft. Non-tender. Bowel sounds active. No CVA tenderness. No mass felt. EXTREMITIES: No edema. Full range of motion of all extremities, equal. NEUROLOGIC: No focal deficit. Cranial nerves II through XII are grossly intact. No headache, no double vision or headache. SKIN: Not dry. Intact. Turgor-normal. LYMPHATIC: No palpable lymph nodes/no lymphedema. MUSCULOSKELETAL: Normal joints with no swelling. Muscle tone is normal. LAB REVIEW: 11/25/16 04:46 11/25/16 04:46 11/25/16 04:46: Sodium 137, Potassium 4.8, Chloride 107, Carbon Dioxide 23, Anion Gap 11.8, BUN 66 H*, Creatinine 4.01 H*, Estimated GFR (MDRD) 14.00, BUN/ Creatinine Ratio 16.45, Glucose 254 H, Calcium 8.3, Total Bilirubin 0.29, AST 14 L, ALT 17, Alkaline Phosphatase 55 L, Total Protein 5.8, Albumin 2.6 L, Globulin 3.2, Albumin/Globulin Ratio 0.81 11/25/16 04:46: WBC 9.34, RBC 3.22 L, Hgb 10.6 L, Hct 31.4 L, MCV 97.5 H, MCH 32.9 H, MCHC 33.8, RDW Coeff of Meagan 13.0, Plt Count 169, Immature Gran % (Auto) 5.0, Neut % (Auto) 75.4, Lymph % (Auto) 9.5 L, [place] % (Auto) 9.4, Eos % (Auto) 0.2, Baso % (Auto) 0.5, Immature Gran # (Auto) 0.5, Neut # 7.0 H, Lymph # 0.9, [place] # 0.9, Eos # 0.0, Baso # 0.1 ASSESSMENT: 1. Sputum positive for E. coli/ESBL 2. Pneumonia, left lobe 3. Dehydration, resolved 4. Acute on chronic renal failure PLAN: 1. Dilaudid 3 mg now. 2. Lasix 20 mg extra this a.m. significant improvement immediately after. 3. Consult with Dr. Huggins for wound. 4. Ativan 0.5 mg t.i.d. p.r.n. for anxiety. 5. Discontinue IV fluids. Plan and coordination of the patient's care discussed in the presence of Sign Builder Supervisor and nurse. CONDITION: Stable SCRIBED BY: DAVID TERRY Group Worker scribed while in presence of service performed by Dr. DANAE TRINH/MONSE LYNCH APRN on 11/25/16 ([id number])
--- NOTE | 2016-11-26 09:24 | PN ---
DATE OF SERVICE: 11/25/16 SUBJECTIVE: The patient was hospitalized with acute bronchitis/pneumonitis. His condition has improved and his chronic renal failure is stable. PHYSICAL EXAMINATION: HEENT: Head normocephalic, atraumatic. Eyes: Extraocular muscles are intact. Pupils are equal, round and reactive to light and accommodation. Ears: No lesions. Nose appeared normal. Throat: No exudate or erythema. NECK: Supple. No JVD, no carotid bruit. No lymphadenopathy or thyromegaly. LUNGS: Decreased breath sounds but clear to auscultation. Percussion note normal. Chest symmetrical. HEART: S1, S2, no S3. No murmurs. No cyanosis or clubbing. No ascites. Pulses: Dorsalis pedis and posterior tibial pulses +1 to +2 both sides. ABDOMEN: Soft. Nontender. Bowel sounds active. No CVA tenderness. No mass felt. EXTREMITIES: No edema. Full range of motion of all extremities, equal. NEUROLOGIC: No focal deficit. Cranial nerves II through XII are grossly intact. No headache, no double vision or headache. SKIN: Not dry. Intact. Turgor - normal. LYMPHATIC: No palpable lymph nodes/no lymphedema. MUSCULOSKELETAL: Normal joints with no swelling. Muscle tone is normal. ASSESSMENT: 1. Bronchitis/Pneumonitis seems to be resolving PLAN: 1. Discharge him home on Antibiotics Augmentin which sensitive to E-coli ESBL 2. Steroids will be given on tapering dose CONDITION: Stable The patient was seen and examined with Nurse Practitioner and Potter Or Ceramic Artist. TIME SPENT: More than 30 minutes. Plan and coordination of the patient's care discussed in the presence of nurse. GABRIELLE
--- NOTE | 2016-11-26 10:28 | DS ---
DATE OF SERVICE: 11/25/16 FINAL DIAGNOSIS: 1. Pneumonia e-coli/ESBL sputum 2. Dehydration 3. Acute on chronic renal failure (Dr. Aguillon) 4. CHF 5. Chronic respiratory failure 6. COPD 7. Blastomycosis by history 8. Prostate cancer by history 9. Diabetes Mellitus, type 2 10.Atrial fibrillation 11.Anemia 12.Dyslipidemia 13.Neuropathy 14.Arthritis 15.Glaucoma 16.Cataract extractions, 2014 and 2015 17.Cholecystectomy, 2009 18.Appendectomy, 2009 LAST VITALS: Temperature 97, pulse 83, respiratory rate 20, blood pressure 155/78 and pulse ox 98%. DISCHARGE INSTRUCTIONS: Discharge home today. Return to see Dr. Huber on 11/28/16 at 2:45pm. Keep appointment with Dr. Aguillon ([place]) on 11/27/16. Resume home medication as per list provided by the nursing staff. MEDICATIONS AT DISCHARGE: NEB one vial NEB RT Q 8 Hours Aspirin EC 81mg PO daily Alphagan P 0.15% one drop OP twice a day Vitamin D 2,000unit PO daily Cosopt one drop OP twice a day Folic acid 0.5mg PO daily Lasix 40mg PO daily Levemir 20 unit SUBCUT bedtime NovoLog Mix 70-30 20unit SUBCUT QDAC Xalatan 1 drop OP bedtime Arava 20mg Po daily Cozaar 50mg PO daily Protonix 40mg PO QDAC Pred Forte 1% Opth [place] one drop OP four times a day Prednisone 20mg PO three times a day WM x2 days, then 10mg PO twice a day WMx5 days Sodium Bicarbonate 650mg twice a day Flomax 0.4mg Po daily Balanced B 100 one tablet PO daily ALLERGIES: Oxycodone Androgenic anabolic steroid Atorvastatin calcium Gabapentin NEW PRESCRIPTIONS: Augmentin 500mg take one tablet PO every 12 hours for 7 days with food Prednisone 20mg take one tablet PO with food twice daily fro 2 days, then 10mg PO with food twice a day for 5 days Tussionex take 5ml by mouth every 12 hours as needed PRN for coughing x7 days only. DIET INSTRUCTIONS: Consistent Carbs Renal failure appropriate ACTIVITY: Use home oxygen continually as directed. Administer nebulizer treatments three times daily. SMOKING: Nonsmoker DISEASE SPECIFIC EDUCATION: Pneumonia E-coli/ESBL (sputum) Renal failure Home medications New medications Oxygen and NEB treatments Followup HOSPITAL COURSE: This is an 86 year old male who presented to our office after being seen two days before for acute bronchitis. He stated that he had no improvement with oral antibiotics and oral steroids. He had also received an IM injection of Decadron. He had been running somewhat of a low grade fever and his oxygen saturation was low. He was pale and having some trouble breathing and had severe bilateral inspiratory and expiratory wheezes. He was subsequently admitted and placed on routine telemetry orders. Chest x-ray revealed left lower lobe pneumonia. Labs revealed acute on chronic renal failure with a creatinine of 4.58 on admission. Initially he was started on Rocephin 1gram IV Q 24 hours along with Vancomycin IV. Sputum culture revealed that he had e-coli which was positive for ESBL. He was then changed to IV Zosyn which was appropriate treatment given the sensitivity along with continued on IV steroids. He remained on IV fluids and his oral Lasix was held given his renal condition. His renal function has gone back and forth and today on day of discharge it is 4.01 which is slightly improved from yesterday. On Thursday renal function creatinine was 3.8. The patient has an appointment with Dr. Aguillon Cuff Maker on and he is instructed to keep this appointment. He did not experience any swelling of the legs or any pulmonary edema while he was here. After being started on IV Zosyn. His coughing and congestion slowly began to improve. He had continued on NEBS Q 6 hours. He has remained on oxygen while he was here at 2 liters. Over the course of the past two days he stated that he is feeling better. He has no been running any fever and he has been eating 100% of his meals. The past two days he has been able to get up and about and use the restroom and sit in the chair which is a significant improvement from admission. He is not acutely short of breath only with moderate exertion not at rest unlike at admission he was short of breath. He has oxygen and nebulizer machine at home. He is instructed to continue nebulizer at home. He will be discharged on Augmentin PO 500mg for the next days which is consistent with the culture and sensitivity report. We will also give Prednisone 20mg twice a day times two days along with 10mg twice a day times five days. He is to see Dr. Aguillon on and then see us on Thursday in the office. Today he was in stable condition. His temperature was 97, heart rate 83, respirations 20, blood pressure 155/78 and pulse ox 98% on room air. Hgb was steady at 10.6, hct 31.4, WBC 9.3, sodium 137, potassium 4.8, BUN 66 and creatinine 4.01. We will discharge him in stable condition and follow with him closely. TIME SPENT: More than 60 minutes. GABRIELLE
--- NOTE | 2016-11-26 13:03 | ECHO2D ---
Date of Exam: 11/24/16 Ordering Physician: DANAE TRINH Room #: 119 Reason for Echo: CONGESTIVE HEART FAILURE M-Mode Normal Adult Results LV Dimensions Normal Adult Results AoV Opening excursions >1.6 1.6 LVEDD-base- 3.5-5.8 5.5 Ao root dimensions 2.0-3.7 4.1 LVESD-base- 3.1-4.6 L. Atrium dimensions 1.9-3.8 4.1 Post. Wall thickness 0.8-1.1 1.3 IV septum (thickness) 0.7-1.2 1.2 Post. Wall excursion 0.72-1.3 NORMAL Septal motion 0.7 Systolic motion R. Ventricular cavity 1.5-2.0 NORMAL LVEF 60% 50% Paradoxical septal wall motion NORMAL 2-D : MAYBE MILDLY HYPOKINETIC LEFT VENTRICLE AND CALCIFIC AORTIC VALVE--NO EFFUSION, NO THROMBUS, MILDLY ENLARGED LEFT ATRIAL SIZE AND AORTIC ROOT M-MODE: MV: NORMAL AV: CALCIFIC AORTIC VALVES, MAYBE MILD AORTIC STENOSIS, AREA 2.0 CM2 TV: NORMAL PV: NORMAL CHAMBER SIZE: MILDLY ENLARGED AORTIC ROOT AND LEFT ATRIAL SIZE WALL MOTION: MILDLY HYPOKINETIC LEFT VENTRICLE PERICARDIUM: NORMAL INTERPRETATION: 1. LEFT VENTRICULAR HYPERTROPHY WITH MILDLY ENLARGED LEFT ATRIAL CAVITY 2. MILDLY DILATED AORTIC ROOT 3. MAYBE MILD AORTIC STENOSIS (AREA 2.0 CM2 BY PLANIMETRY) 4. MILDLY HYPOKINETIC LEFT VENTRICLE WITH EJECTION FRACTION 50% MTDD
--- NOTE | 2016-11-26 13:28 | PN ---
DATE OF SERVICE: 11/24/16 SUBJECTIVE: The patient was admitted with acute bronchitis and respiratory failure. The patient's condition has improved slowly. Yesterday the patient was doing fine and this morning he is still coughing and congested. The patient had an echocardiogram done which showed LV ejection fraction 45-50%, LVH mildly enlarged LA cavity, mild aortic stenosis with valve area of close to 2cm square. The patient's previous echo was December 2015 shows little improvement of LV ejection fraction. The patient's does not have any symptoms of CHF. Mostly the shortness of breath is on the bases of inactivity and chronic lung disease. PHYSICAL EXAMINATION: HEENT: Head normocephalic, atraumatic. Eyes: Extraocular muscles are intact. Pupils are equal, round and reactive to light and accommodation. Ears: No lesions. Nose appeared normal. Throat: No exudate or erythema. NECK: Supple. No JVP, no carotid bruit. No lymphadenopathy or thyromegaly. LUNGS: Decreased breath sounds with mild wheeze. Percussion note normal. Chest symmetrical. HEART: S1, S2, no S3. No murmurs. No cyanosis or clubbing. No ascites. Pulses: Dorsalis pedis and posterior tibial pulses +1 to +2 both sides. ABDOMEN: Soft. Nontender. Bowel sounds active. No CVA tenderness. No mass felt. EXTREMITIES: No edema. Full range of motion of all extremities, equal. NEUROLOGIC: No focal deficit. Cranial nerves II through XII are grossly intact. No headache, no double vision or headache. SKIN: Not dry. Intact. Turgor - normal. LYMPHATIC: No palpable lymph nodes/no lymphedema. MUSCULOSKELETAL: Normal joints with no swelling. Muscle tone is normal. ASSESSMENT: 1. Acute bronchitis, seems to be resolving slowly PLAN: 1. Continue with the antibiotics the way it is with steroids. 2. The patient is advised pulmonary rehab and he is going to think about it. CONDITION: Stable TIME SPENT: More than 30 minutes. Plan and coordination of the patient's care discussed in the presence of nurse. GABRIELLE
--- NOTE | 2016-11-26 13:53 | PN ---
DATE OF SERVICE: 11/23/16 SUBJECTIVE: The patient is an 86 year old white male hospitalized with pneumonitis, shortness of breath, acute bronchitis and chronic renal failure. The patient's condition has improved now. He has been coughing up very scant sputum. Tussionex is helping his cough. REVIEW OF SYSTEMS: CONSTITUTIONAL: No night sweats. Weakness and fatigue but improving. No fever or chills. HEENT: Eyes: No visual changes. No eye pain. No eye discharge. ENT: No runny nose. No epistaxis. No sinus pain. No sore throat. No odynophagia. No congestion. RESPIRATORY: Mild cough with congestion. No hemoptysis. Shortness of breath on exertion but less than before. CARDIOVASCULAR: No angina symptoms. No CHF symptoms. No atypical chest pain for CAD. No palpitations. No orthopnea. No PND. GASTROINTESTINAL: No abdominal pain. No nausea or vomiting. No diarrhea or constipation. No hematemesis. No hematochezia. Appetite is improving. GENITOURINARY: No urgency. No frequency. No dysuria. No hematuria. No obstructive symptoms. No discharge. No pain. No significant abnormal bleeding. MUSCULOSKELETAL: No musculoskeletal pain; no joint swelling. NEUROLOGICAL: No headache. No neck pain. No syncope. No seizures. No dizziness. PSYCHIATRIC: Not anxious. No depression. No suicidal thoughts. No homicidal thoughts. SKIN: No rash. No lesions. No wounds. ENDOCRINE: No unexplained weight loss. No weight gain. HEMATOLOGIC/LYMPHATIC: No anemia. No purpura. No petechiae. No prolonged or excessive bleeding. No palpable lymph nodes. PHYSICAL EXAMINATION: GENERAL: The patient is oriented to time, place and person. VITAL SIGNS: Temperature 97.4, pulse 88, respiratory rate 20, blood pressure 147/72 and pulse ox 97%. HEENT: Head normocephalic, atraumatic. Eyes: Extraocular muscles are intact. Pupils are equal, round and reactive to light and accommodation. Ears: No lesions. Nose appeared normal. Throat: No exudate or erythema. NECK: Supple. No JVD, no carotid bruit. No lymphadenopathy or thyromegaly. LUNGS: Decreased breath sounds but clear to auscultation. Percussion note normal. Chest symmetrical. HEART: S1, S2, no S3. No murmurs. No cyanosis or clubbing. No ascites. Pulses: Dorsalis pedis and posterior tibial pulses +1 to +2 both sides. ABDOMEN: Soft. Nontender. Bowel sounds active. No CVA tenderness. No mass felt. EXTREMITIES: No edema. Full range of motion of all extremities, equal. NEUROLOGIC: No focal deficit. Cranial nerves II through XII are grossly intact. No headache, no double vision or headache. SKIN: Not dry. Intact. Turgor - normal. LYMPHATIC: No palpable lymph nodes/no lymphedema. MUSCULOSKELETAL: Normal joints with no swelling. Muscle tone is normal. LABS: hgb 10.6, hct 31, WBC 8,200 normal differential, creatinine 3.8, BUN 55, potassium 4.5. ASSESSMENT: 1. Acute pneumonitis/bronchitis seems to be resolving 2. History of blastomycosis 3. Chronic lung disease 4. Coronary artery disease 5. Chronic renal failure 6. Anemia of chronic disorder 7. Diabetes Mellitus, with Hyperglycemia from steroids. PLAN: 1. Discontinue Solu-Cortef and put him on Prednisone 10mg three times a day 2. Continue antibiotics 3. Continue to encourage the patient to walk 4. Pulmonary rehab discussed in detail CONDITION: Stable TIME SPENT: More than 30 minutes. Plan and coordination of the patient's care discussed in the presence of nurse. GABRIELLE
== END 2016-11-25 11:44 | disposition home or self-care (01) | DRG 178 ==
LOC: MEDSURG B 11:11
PROVIDERS: ADMIT Internal Medicine; ATTEND Internal Medicine
DX: J15.5 Pneumonia due to Escherichia coli (principal); E86.0 Dehydration; J44.0 Chronic obstructive pulmonary disease with (acute) lower respiratory infection; J96.10 Chronic respiratory failure, unspecified whether with hypoxia or hypercapnia; N18.4 Chronic kidney disease, stage 4 (severe); I51.7 Cardiomegaly; J20.9 Acute bronchitis, unspecified; R60.0 Localized edema; I35.8 Other nonrheumatic aortic valve disorders; R01.1 Cardiac murmur, unspecified; I50.9 Heart failure, unspecified; E11.9 Type 2 diabetes mellitus without complications; I48.91 Unspecified atrial fibrillation; D64.9 Anemia, unspecified; E78.5 Hyperlipidemia, unspecified; M06.9 Rheumatoid arthritis, unspecified; Z16.12 Extended spectrum beta lactamase (ESBL) resistance; Z79.4 Long term (current) use of insulin; Z79.899 Other long term (current) drug therapy; Z86.19 Personal history of other infectious and parasitic diseases; Z85.46 Personal history of malignant neoplasm of prostate
CPT/HCPCS: 36415; 80053; 81001; 82550; 82962; 83874; 84484; 85025; 87040; 87070; 87186; 93005; 93010; 94640

== ENCOUNTER 2017-02-27 09:52 | Outpatient (CLI) ==
[2017-02-27 10:46] LABS: ALBUMIN 3.4 g/dL (3.4-5.0); ALBUMIN/GLOBULIN RATIO 0.74; ANION GAP 17.7; BILIRUBIN,TOTAL 0.4 mg/dL (0.00-1.20); BUN/CREATININE RATIO 14.31; CALCIUM 8.8 mg/dL (8.2-10.2); POTASSIUM 4.7 mmol/L (3.5-5.1)
[2017-02-27 10:50] LABS: CREATININE 4.54 mg/dL (0.60-1.10)
== END 2017-02-27 09:53 | disposition home or self-care (01) ==
LOC: LAB 09:52
PROVIDERS: ATTEND Internal Medicine
DX: R94.4 Abnormal results of kidney function studies (principal)
CPT/HCPCS: 36415; 80053

== ENCOUNTER 2017-06-02 13:12 | Inpatient (IN) ==
[2017-06-02] MEDS ORDERED: MORPHINE 4 MG/ML VIAL IVP PRN (13:34)
[2017-06-02] MEDS ORDERED: ATROPINE SULFATE PFS IVP PRN (13:34)
[2017-06-02] MEDS ORDERED: TYLENOL PO PRN (13:34)
[2017-06-02] MEDS ORDERED: VISTARIL INJ IM PRN (13:34)
[2017-06-02] MEDS ORDERED: NITROSTAT SL PRN (13:34)
[2017-06-02] MEDS: ZOFRAN 4 MG/2 ML IVP SCH ×2 (14:08→20:19)
--- NOTE | 2017-06-02 14:39 | DI ---
EXAM: Single view of the chest. History: Cough. Comparison: Chest radiograph 11/19/2016, chest CT 11/20/2016 Findings: Heart remains mildly enlarged. No significant interval change in the innumerable bilatera l pulmonary nodules. Small left pleural effusion. No pneumothorax. No acute osseous abnormalities. Impression: No significant interval change in the innumerable bilateral pulmonary nodules could be in fectious/inflammatory etiology or metastatic.
[2017-06-02] MEDS: PROTONIX IV 40 MG in SODIUM CHLORIDE 100 ML IV SCH (16:59)
[2017-06-02] MEDS: DEXTROSE 5%-1/2NS IV SOLUTION 1,000 ML IV SCH (16:59)
[2017-06-02] MEDS: SODIUM BICARBONATE PO SCH (20:19)
[2017-06-02] MEDS: HUMULIN R SUBCUT PRN (20:31)
[2017-06-02] MEDS ORDERED: INSULIN DETEMIR 40 UNIT SQ SCH (21:00)
[2017-06-03] MEDS: ZOFRAN 4 MG/2 ML IVP SCH ×4 (03:30→20:18)
[2017-06-03] MEDS ORDERED: LASIX TAB PO SCH ×2 (06:30→16:10)
[2017-06-03] MEDS ORDERED: PROTONIX PO SCH (06:30)
[2017-06-03] MEDS: DEXTROSE 5%-1/2NS IV SOLUTION 1,000 ML IV SCH ×2 (07:02→21:07)
[2017-06-03] MEDS ORDERED: ASPIRIN EC PO SCH (08:00)
[2017-06-03] MEDS ORDERED: NON-FORMULARY MEDICATION (Cholecalciferol (Vitamin D3) [Vitamin D3] 2,000 UNIT) PO SCH (09:00)
[2017-06-03] MEDS ORDERED: LEFLUNOMIDE 20 MG PO SCH (09:00)
[2017-06-03] MEDS ORDERED: NON-FORMULARY MEDICATION (Ascorbic Acid [Vitamin C] 1,000 MG) PO SCH (09:00)
[2017-06-03] MEDS ORDERED: CALCIUM CARB PO SCH (09:00)
[2017-06-03] MEDS ORDERED: [UNRECOGNIZED DRUG - OTHER] PO SCH (09:00)
[2017-06-03] MEDS ORDERED: NON-FORMULARY MEDICATION (Losartan Potassium 50 MG) PO SCH (09:00)
[2017-06-03] MEDS: ASPIRIN EC PO SCH (09:26)
[2017-06-03] MEDS: COZAAR PO SCH (09:27)
[2017-06-03] MEDS: VITAMIN C PO SCH (09:27)
[2017-06-03] MEDS: ARAVA PO SCH (09:27)
[2017-06-03] MEDS: ZETIA PO SCH (09:27)
[2017-06-03] MEDS: NORVASC PO SCH (09:28)
[2017-06-03] MEDS: VITAMIN D PO SCH (09:28)
[2017-06-03] MEDS: FLOMAX PO SCH (09:28)
[2017-06-03] MEDS: SODIUM BICARBONATE PO SCH ×2 (09:28→20:18)
[2017-06-03] MEDS: BALANCED B-100 PO SCH (09:29)
[2017-06-03] MEDS: FOLIC ACID PO SCH (09:29)
[2017-06-03] MEDS: PROTONIX IV 40 MG in SODIUM CHLORIDE 100 ML IV SCH (09:31)
[2017-06-03] MEDS: HUMULIN R SUBCUT PRN ×3 (11:43→20:18)
[2017-06-03] MEDS ORDERED: XALATAN OP SCH ×2 (12:00→21:00)
[2017-06-03] MEDS: BRIMONIDINE TARTRATE 0.2% OPTH SOL OP SCH ×2 (12:13→20:19)
--- NOTE | 2017-06-03 13:08 | PCM.PROG ---
Attending Provider: ATTENDING PROVIDER: Dr. DANAE TRINH DATE OF SERVICE: 06/03/17 SUBJECTIVE: This 86 year old WHITE/ M was hospitalized 06/02/17 with acute gastroenteritis and vomiting. The patient has chronic kidney failure. BUN and creatinine have deteriorated some but is feeling better. He is eating better, no nausea oriented times three. No symptoms of CHF or CAD. REVIEW OF SYSTEMS: CONSTITUTIONAL: No night sweats. No fatigue, malaise, lethargy. No fever or chills. HEENT: Eyes: No visual changes. No eye pain. No eye discharge. ENT: No runny nose. No epistaxis. No sinus pain. No odynophagia. No congestion. RESPIRATORY: No cough, no congestion. No hemoptysis. No shortness of breath. CARDIOVASCULAR: No angina symptoms. No CHF symptoms. No atypical chest pain for CAD. No palpitations. No orthopnea.. GASTROINTESTINAL: No abdominal pain. No nausea or vomiting. No diarrhea or constipation. No hematemesis. No hematochezia. GENITOURINARY: No urgency. No frequency. No dysuria. No hematuria. No obstructive symptoms. No discharge. No pain. No significant abnormal bleeding. MUSCULOSKELETAL: No musculoskeletal pain; no joint swelling. NEUROLOGICAL: Awake, alert, oriented to time, place and person. No headache. No neck pain. No syncope. No seizures. No dizziness. PSYCHIATRIC: Not anxious. No depression. No suicidal thoughts. No homicidal thoughts. SKIN: No rash. No lesions. No wounds. ENDOCRINE: No unexplained weight loss. No weight gain. HEMATOLOGIC/LYMPHATIC: No anemia. No purpura. No petechiae. No prolonged or excessive bleeding. No palpable lymph nodes. PHYSICAL EXAMINATION: GENERAL: The patient is awake, alert and oriented, sitting on the side of the bed in no distress. VITAL SIGNS: Temperature 97.6 F, Pulse 72, Respiratory Rate 16, BP 129/72, Pulse Ox 93% HEENT: Head normocephalic, atraumatic. Eyes: Extraocular muscles are intact. Pupils are equal, round and reactive to light and accommodation. Ears: No lesions. Nose appeared normal. Throat: No exudate or erythema. NECK: Supple. No JVD, no carotid bruit. No lymphadenopathy or thyromegaly. LUNGS: Decreased breath sounds. Clear to auscultation. Percussion note normal. Chest symmetrical. HEART: S1, S2, no S3. No murmurs. No cyanosis or clubbing. No ascites. Pulses: Dorsalis pedis and posterior tibial pulses +1 to +2 both sides. ABDOMEN: Soft. Non-tender. Bowel sounds active. No CVA tenderness. No mass felt. EXTREMITIES: No edema. Full range of motion of all extremities, equal. NEUROLOGIC: No focal deficit. Cranial nerves II through XII are grossly intact. No headache, no double vision or headache. SKIN: Warm and dry. Intact. Turgor-normal. LYMPHATIC: No palpable lymph nodes/no lymphedema. MUSCULOSKELETAL: Normal joints with no swelling. Muscle tone is normal. LAB REVIEW: 06/03/17 04:35 06/03/17 04:35 06/03/17 04:35: Sodium 137, Potassium 3.8, Chloride 106, Carbon Dioxide 22 L, Anion Gap 12.8, BUN 53 H, Creatinine 4.81 H*, Estimated GFR (MDRD) 12.00, BUN/ Creatinine Ratio 11.01, Glucose 155 H D, Calcium 8.9, Total Bilirubin 0.5, AST 18, ALT 10 L, Alkaline Phosphatase 41 L, Total Protein 6.6, Albumin 2.9 L, Globulin 3.7, Albumin/Globulin Ratio 0.78 06/03/17 04:35: WBC 6.78, RBC 3.45 L, Hgb 11.4 L, Hct 33.0 L, MCV 95.7 H, MCH 33.0 H, MCHC 34.5, RDW Coeff of Meagan 13.6, Plt Count 151, Immature Gran % (Auto) 0.7, Neut % (Auto) 59.8, Lymph % (Auto) 22.0, [place] % (Auto) 13.6 H, Eos % (Auto ) 3.2, Baso % (Auto) 0.7, Immature Gran # (Auto) 0.1, Neut # (Auto) 4.1, Lymph # (Auto) 1.5, [place] # (Auto) 0.9, Eos # (Auto) 0.2, Baso # (Auto) 0.1 06/02/17 21:35: Urine Color Yellow, Urine Clarity Clear, Urine pH 6.0, Ur Specific [place] 1.020, Urine Protein 2+, Urine Glucose (UA) 2+, Urine Ketones Negative, Urine Blood 2+, Urine Nitrite Negative, Urine Bilirubin Negative, Urine Urobilinogen 0.2, Ur Leukocyte Esterase Negative, Urine Microscopic RBC 0- 2, Ur Squamous Epith Cells 0-2, Urine Bacteria Trace, Fine Granular Casts 0-2 06/02/17 14:25: Sodium 138, Potassium 3.9, Chloride 104, Carbon Dioxide 27, Anion Gap 10.9, BUN 51 H, Creatinine 4.70 H*, Estimated GFR (MDRD) 12.00, BUN/ Creatinine Ratio 10.85, Glucose 92, Calcium 9.4, Total Bilirubin 0.5, AST 21, ALT 15, Alkaline Phosphatase 46 L, Total Protein 7.1, Albumin 4.0, Globulin 3.1 , Albumin/Globulin Ratio 1.29 06/02/17 14:25: WBC 8.78, RBC 3.72 L, Hgb 12.5 L, Hct 35.3 L, MCV 94.9 H, MCH 33.6 H, MCHC 35.4, RDW Coeff of Meagan 13.6, Plt Count 166, Immature Gran % (Auto) 0.8, Neut % (Auto) 79.0, Lymph % (Auto) 10.1, [place] % (Auto) 8.9, Eos % (Auto) 0.6, Baso % (Auto) 0.6, Immature Gran # (Auto) 0.1, Neut # (Auto) 6.9, Lymph # ( Auto) 0.9, [place] # (Auto) 0.8, Eos # (Auto) 0.1, Baso # (Auto) 0.1 ASSESSMENT/PLAN: 1. Acute gastroenteritis seems to have resolved 2. Dehydration on physical exam resolved - good skin turgo. Kidney functions have deteriorated some but will continue slow IV hydration. 3. Will continue to encourage the patient to eat. Plan and coordination of the patient's care discussed in the presence of Tool Tender and nurse. CONDITION: IMPROVED CLINICALLY. SCRIBED BY: DAVID TERRY Compressor Stations Superintendent scribed while in presence of service performed by Dr. DANAE TRINH on 06/03/17 ([id number])
[2017-06-03] MEDS ORDERED: BRIMONIDINE TARTRATE 0.2% OPTH SOL OP SCH (21:00)
[2017-06-04] MEDS: ZOFRAN 4 MG/2 ML IVP SCH ×2 (01:39→09:20)
[2017-06-04] MEDS: HUMULIN R SUBCUT PRN ×2 (05:58→11:09)
--- NOTE | 2017-06-04 08:08 | HP ---
DATE OF SERVICE: 06/02/17 REASON FOR HOSPITALIZATION/HISTORY OF PRESENT ILLNESS: Started this morning with vomiting, vomited 10x today. No diarrhea. Unable to keep anything down, sweaty. PAST MEDICAL HISTORY: Diabetes mellitus type 2 Rheumatoid arthritis BPH Chronic kidney disease COPD Anemia Atrial fibrillation CA prostate with radiation 2005 PAST SURGICAL HISTORY: Back surgery Eye Gallbladder Appendix REVIEW OF SYSTEMS: CONSTITUTIONAL: No fever, Fatigue. HEENT: No sinus drainage, no sore throat. RESPIRATORY: No cough, no congestion. CARDIOVASCULAR: No atypical chest pain for coronary artery disease. No angina , CHF symptoms, palpitations. Shortness of breath as usual. GASTROINTESTINAL: No melena. Abdominal pain. No GERD. Vomiting. GENITOURINARY: No hematuria, no prostatism, no polyuria. VP RESPIRATORY: No blackout, no dizziness, no headache, no double vision. Gait: Unsteady. MUSCULOSKELETAL: Osteoarthritis pain, no joint swelling. ENDOCRINE: No weight loss, no weight gain. SKIN: Not dry, no rash. PSYCHIATRIC: Not anxious, no depression, no suicidal thoughts, no homicidal thoughts. SOCIAL HISTORY: Marital Status: . Alcohol Usage: No. Tobacco Usage: No. FAMILY HISTORY: Father , [place] Mother , [place] liver Sister 1, MEDICATIONS: Flomax 0.4mg PO daily Novolog 20unit daily Zetia 10mg daily Vitamin B12 500mg daily Vitamin C ER 1000mg daily Levemir 40 units daily Sodium bicarb 650mg three times a day Folic acid 400mg two daily ASA 81mg daily Lasix 40mg, MON, WED and FRI. Leflunomide 20mg PO daily Losartan 50mg PO daily Norvasc 5mg PO daily Protonix 40mg one daily Vitamin D 200mg daily Sodium polystyrene sulfate 75mg two tablets NEBS treatment Keflex 500mg three times a day from - has a few left. ALLERGIES: Lipitor Androgenic Anabolic Steroid Oxycodone Gabapentin PHYSICAL EXAMINATION: V/S: Pulse 70, blood pressure 120/78, temperature 97.8, pulse ox 97%; patient on 2 liters nasal canula. GENERAL APPEARANCE: Oriented times three. Pale, Clammy. Skin dry. HEENT: Normal. NECK: No JVP, no bruits. RESPIRATORY: Decreased breath sounds. CARDIOVASCULAR: S1, S2, no S3, no murmurs. No cyanosis, clubbing. No ascites. GI/ABDOMEN: No tenderness. Bowel sounds are hyperactive. EXTREMITIES: edema, pulses +1, equal. VP RESPIRATORY: Deep tendon reflexes, sensory, motor and gait all normal. RECTAL:03/29 Dr. Delacruz/PROSTATE: 4-16(20.1). ASSESSMENT: 1. Vomiting 2. Dehydration 3. Chronic renal failure 4. COPD 5. Congestive heart failure 6. History of PE 7. Diabetes mellitus type 2 8. Anemia 9.Cancer of prostate 10.Chronic kidney disease stage 4 11.Neuropathy (Diabetic) PLAN: 1. Admit 2. D5 1/2 normal saline at 75ml per hour 3. Routine telemetry orders, skip cardiac markers 4. Zofran 4mg IV Q 6 hours Scheduled 5. Protonix 40mg IV daily 6. CBC and CMP now and daily 7. Continue home medications 8. Sliding scale coverage only 9. Chest x-ray today. TIME SPENT: More than 70 minutes. MTDD
--- NOTE | 2017-06-04 08:13 | PN ---
DATE OF SERVICE: 06/02/17 ADMIT NOTE SUBJECTIVE: 86 year old white male hospitalized with acute gastroenteritis. The patient was dehydrated on physical exam with poor skin turgor. His creatinine was 4.7 with BUN Of 51. The patient has chronic renal failure and will be given 75cc per hour and he will be watched for any fluid overload. CONDITION: stable. His hgb was 12.5 with hct 35 with WBC of 8,7000 with normal differential. TIME SPENT: More than 30 minutes. Plan and coordination of the patient's care discussed in the presence of nurse. GABRIELLE
[2017-06-04] MEDS: PROTONIX IV 40 MG in SODIUM CHLORIDE 100 ML IV SCH (09:10)
[2017-06-04] MEDS: BRIMONIDINE TARTRATE 0.2% OPTH SOL OP SCH (09:11)
[2017-06-04] MEDS: SODIUM BICARBONATE PO SCH (09:12)
[2017-06-04] MEDS: NORVASC PO SCH (09:12)
[2017-06-04] MEDS: ZETIA PO SCH (09:12)
[2017-06-04] MEDS: VITAMIN D PO SCH (09:12)
[2017-06-04] MEDS: FLOMAX PO SCH (09:12)
[2017-06-04] MEDS: ASPIRIN EC PO SCH (09:12)
[2017-06-04] MEDS: FOLIC ACID PO SCH (09:13)
[2017-06-04] MEDS: ARAVA PO SCH (09:15)
[2017-06-04] MEDS: VITAMIN C PO SCH (09:15)
[2017-06-04] MEDS: COZAAR PO SCH (09:15)
[2017-06-04] MEDS: BALANCED B-100 PO SCH (09:15)
--- NOTE | 2017-06-04 09:44 | PCM.PROG ---
Attending Provider: ATTENDING PROVIDER: Dr. DANAE TRINH This patient is seen with Monse Bowie, Nurse Practitioner. DATE OF SERVICE: 06/04/17 SUBJECTIVE: This 86 year old WHITE/ M was hospitalized 06/02/17. The patient is sitting in bed, alert. He has been able to eat well. No nausea/vomiting for the past 24 hours. Kidney function only slightly elevated from his baseline. REVIEW OF SYSTEMS: CONSTITUTIONAL: Weakness, fatigue. No night sweats. No malaise, lethargy. No fever or chills. HEENT: Eyes: No visual changes. No eye pain. No eye discharge. ENT: No runny nose. No epistaxis. No sinus pain. No odynophagia. No congestion. RESPIRATORY: No cough, no congestion. No hemoptysis. No shortness of breath. CARDIOVASCULAR: No angina symptoms. No CHF symptoms. No atypical chest pain for CAD. No palpitations. No orthopnea.. GASTROINTESTINAL: No abdominal pain. No nausea or vomiting. No diarrhea or constipation. No hematemesis. No hematochezia. GENITOURINARY: No urgency. No frequency. No dysuria. No hematuria. No obstructive symptoms. No discharge. No pain. No significant abnormal bleeding. MUSCULOSKELETAL: No musculoskeletal pain; no joint swelling. NEUROLOGICAL: Awake, alert, oriented to time, place and person. No headache. No neck pain. No syncope. No seizures. No dizziness. PSYCHIATRIC: Not anxious. No depression. No suicidal thoughts. No homicidal thoughts. SKIN: No rash. No lesions. No wounds. ENDOCRINE: No unexplained weight loss. No weight gain. HEMATOLOGIC/LYMPHATIC: No anemia. No purpura. No petechiae. No prolonged or excessive bleeding. No palpable lymph nodes. PHYSICAL EXAMINATION: GENERAL: The patient is awake, alert and oriented, lying/sitting in bed in no distress. VITAL SIGNS: Temperature 97.5 F, Pulse 72, Respiratory Rate 14, BP 126/60, Pulse Ox 99% HEENT: Head normocephalic, atraumatic. Eyes: Extraocular muscles are intact. Pupils are equal, round and reactive to light and accommodation. Ears: No lesions. Nose appeared normal. Throat: No exudate or erythema. NECK: Supple. No JVD, no carotid bruit. No lymphadenopathy or thyromegaly. LUNGS: Diminished breath sounds. Clear to auscultation. Percussion note normal. Chest symmetrical. HEART: S1, S2, no S3. No murmurs. No cyanosis or clubbing. No ascites. Pulses: Dorsalis pedis and posterior tibial pulses +1 to +2 both sides. ABDOMEN: Soft. Non-tender. Bowel sounds active. No CVA tenderness. No mass felt. EXTREMITIES: No edema. Full range of motion of all extremities, equal. NEUROLOGIC: No focal deficit. Cranial nerves II through XII are grossly intact. No headache, no double vision or headache. SKIN: Not dry. Intact. Turgor-normal. LYMPHATIC: No palpable lymph nodes/no lymphedema. MUSCULOSKELETAL: Normal joints with no swelling. Muscle tone is normal. LAB REVIEW: 06/04/17 04:30 06/04/17 04:30 06/04/17 04:30: Sodium 135 L, Potassium 4.1, Chloride 105, Carbon Dioxide 21 L, Anion Gap 13.1, BUN 57 H, Creatinine 5.19 H*, Estimated GFR (MDRD) 11.00, BUN/ Creatinine Ratio 10.98, Glucose 173 H, Calcium 8.5, Total Bilirubin 0.5, AST 15 , ALT 11 L, Alkaline Phosphatase 44 L, Total Protein 6.6, Albumin 2.9 L, Globulin 3.7, Albumin/Globulin Ratio 0.78 06/04/17 04:30: WBC 7.04, RBC 3.54 L, Hgb 11.7 L, Hct 33.8 L, MCV 95.5 H, MCH 33.1 H, MCHC 34.6, RDW Coeff of Meagan 13.4, Plt Count 151, Immature Gran % (Auto) 0.7, Neut % (Auto) 53.4, Lymph % (Auto) 29.0, [place] % (Auto) 13.2 H, Eos % (Auto ) 3.3, Baso % (Auto) 0.4, Immature Gran # (Auto) 0.1, Neut # (Auto) 3.8, Lymph # (Auto) 2.0, [place] # (Auto) 0.9, Eos # (Auto) 0.2, Baso # (Auto) 0.0 ASSESSMENT: Please see below. 1. Acute gastroenteritis seems to have resolved 2. Dehydration on physical exam resolved - good skin turgor. Kidney functions have deteriorated some, encouraged to increase fluids. PLAN: 1. Discharge home 2. Keep followup with nephrology 3. Encourage to increase fluids 4. Zofran 4 mg q.6hr p.r.n. Plan and coordination of the patient's care discussed in the presence of Tube Depatcher and nurse. CONDITION: Stable SCRIBED BY: DAVID TERRY Electronic Train Control Technician scribed while in presence of service performed by Dr. Trinh/Monse Bowie APRN on 06/04/17 ([id number])
[2017-06-04 09:52] VITALS: BP 85/57; TEMP 98.9
--- NOTE | 2017-06-04 11:41 | CM.DICTOOL ---
ADMISSION: 06/02/17 13:12 DISCHARGE: JUNE 04, 2017 DATE OF SERVICE: 06/04/17 FINAL DIAGNOSIS VOMITING DEHYDRATION CKD, STAGE 4 (NO DIALYSIS OF YET, HAS SHUNT ONLY) COPD BLASTOMYCOSIS CHF ANEMIA DIABETES MELLITUS, TYPE 2 BULGING DISC, L5 CHOLECYSTECTOMY, 2010 APPENDECTOMY, 2010 CATARACT EXTRACTION, LEFT 2016 LAST VITALS Temp Pulse Resp BP Pulse Ox 98.9 F 84 18 85/57 L 97 06/04/17 09:50 06/04/17 09:50 06/04/17 09:50 06/04/17 09:50 06/04/17 09:50 TAKE THESE MEDICATIONS Amlodipine Besylate (Norvasc) 5 mg PO DAILY [facility] Last Admin: 06/04/17 09:12 Dose: 5 mg Ascorbic Acid (Vitamin C) 1,000 mg PO DAILY [facility] Last Admin: 06/04/17 09:15 Dose: 1,000 mg Aspirin (Aspirin Ec) 81 mg PO DAILYWM [facility] Last Admin: 06/04/17 09:12 Dose: 81 mg Brimonidine Tartrate (Brimonidine Tartrate 0.2% Opth Desiree) 1 drop OP BID [facility] Last Admin: 06/04/17 09:11 Dose: 1 drop Cholecalciferol (Vitamin D) 2,000 unit PO DAILY [facility] Last Admin: 06/04/17 09:12 Dose: 2,000 unit Ezetimibe (Zetia) 10 mg PO DAILY [facility] Last Admin: 06/04/17 09:12 Dose: 10 mg Folic Acid (Folic Acid) 0.5 mg PO DAILY [facility] Last Admin: 06/04/17 09:13 Dose: 0.5 mg Furosemide (Lasix Tab) 40 mg PO [id number] [facility] Last Admin: 06/03/17 06:23 Dose: 40 mg Pantoprazole Sodium 40 mg PO QDAC Last Admin: 06/04/17 09:10 Dose: Latanoprost (Xalatan) 1 drop OP BEDTIME [facility] Last Admin: 06/03/17 20:19 Dose: 1 drop Leflunomide (Arava) 20 mg PO DAILY [facility] Last Admin: 06/04/17 09:15 Dose: 20 mg Losartan Potassium (Cozaar) 50 mg PO DAILY [facility] Last Admin: 06/04/17 09:15 Dose: 50 mg Sodium Bicarbonate (Sodium Bicarbonate) 650 mg PO BID [facility] Last Admin: 06/04/17 09:12 Dose: 650 mg Tamsulosin HCl (Flomax) 0.4 mg PO DAILY [facility] Last Admin: 06/04/17 09:12 Dose: 0.4 mg Vitamin B Complex (Balanced B-100) 1 tab PO DAILY [facility] Last Admin: 06/04/17 09:15 Dose: 1 tab Levemir Flextouch 40 units SQ at BEDTIME DAILY Last Admin: Novolog Mix 70/30 FlexPen Syringe 20 units SQ DAILY AC Last Admin: ALLERGIES oxycodone Adverse Reaction (Intermediate, Verified 12/19/15 10:42) Vomiting Androgenic Anabolic Steroid Adverse Reaction (Verified 12/19/15 10:42) Unknown atorvastatin calcium [From Lipitor] Adverse Reaction (Verified 12/19/15 10:42) Unknown gabapentin Adverse Reaction (Verified 12/19/15 10:42) Unknown NEW PRESCRIPTIONS: ZOFRAN 4 MG TABS 1 TABLET EVERY 6 HOURS PRN NAUSEA/VOMITING MEDICATION CHANGES None SMOKING: Not Applicable DISEASE SPECIFIC EDUCATION: Dehydration Gastroenteritis Diet Appointment Prescription LAB REVIEW: 06/04/17 04:30 06/04/17 04:30 06/04/17 04:30: Sodium 135 L, Potassium 4.1, Chloride 105, Carbon Dioxide 21 L, Anion Gap 13.1, BUN 57 H, Creatinine 5.19 H*, Estimated GFR (MDRD) 11.00, BUN/ Creatinine Ratio 10.98, Glucose 173 H, Calcium 8.5, Total Bilirubin 0.5, AST 15 , ALT 11 L, Alkaline Phosphatase 44 L, Total Protein 6.6, Albumin 2.9 L, Globulin 3.7, Albumin/Globulin Ratio 0.78 06/04/17 04:30: WBC 7.04, RBC 3.54 L, Hgb 11.7 L, Hct 33.8 L, MCV 95.5 H, MCH 33.1 H, MCHC 34.6, RDW Coeff of Meagan 13.4, Plt Count 151, Immature Gran % (Auto) 0.7, Neut % (Auto) 53.4, Lymph % (Auto) 29.0, [place] % (Auto) 13.2 H, Eos % (Auto ) 3.3, Baso % (Auto) 0.4, Immature Gran # (Auto) 0.1, Neut # (Auto) 3.8, Lymph # (Auto) 2.0, [place] # (Auto) 0.9, Eos # (Auto) 0.2, Baso # (Auto) 0.0 PLAN: DISCHARGE HOME DIET: REGULAR TOLERATED ACTIVITY: RESUME TOLERATED OXYGEN AT 2 LITERS PER NASAL CANNULA KEEP APPOINTMENTS SCHEDULED WITH NEPHROLOGY/ANY OTHER SPECIALITY PHYSICIANS CHECK BLOOD SUGARS VIA GLUCOMETER DIRECTED OR AT LEAST 2 TIMES DAILY AN APPOINTMENT IS SCHEDULED WITH DR. TRINH ON May AT 11:45 AM MR. SILVERMAN IS ALERT AND ORIENTED X 3. HE IS INDEPENDENT WITH FEEDING AND AMBULATION. HE REQUIRES ASSISTANCE WITH BATHING AND DRESSING. HE IS ABLE TO STAND UNASSISTED AND TO TRANSFER FROM THE BED TO THE CHAIR AND CHAIR TO THE BED. HE IS INDEPENDENT WITH BED MOBILITY. HE UTILIZES A ROLLING WALKER AT TIMES FOR AMBULATION. NO NAUSEA OR VOMITING SINCE HIS ADMISSION. MEAL INTAKES HAVE BEEN 50-100% FOR ALL MEALS. SKIN CONDITION IS GOOD, NO DECUBITUS ULCERS NOTED. DANAE TRINH MD SUSANA LYNCH APRN
[2017-06-04] MEDS: DEXTROSE 5%-1/2NS IV SOLUTION 1,000 ML IV SCH (12:15)
--- NOTE | 2017-06-05 08:41 | DS ---
DATE OF SERVICE: 06/04/17 FINAL DIAGNOSIS: 1. Vomiting 2. Dehydration 3. 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 COPD 5. Blastomycosis 6. CHF 7. Anemia 8. Diabetes Mellitus, type 2 9. Bulging disc, L5 10.Cholecystectomy, 2009 11.Appendectomy, 2009 12.Cataract extraction, Left 2016 LAST VITALS: Temperature 98.9, pulse 84, respiratory 18, Blood pressure 85/57 and pulse ox 97 %. DISCHARGE INSTRUCTIONS: Discharge home. Oxygen at 2 liters per nasal cannula. Keep appointments as scheduled with nephrology/any other specially physicians. Check blood sugars via glucometer as directed or at least 2 times daily. An appointment is scheduled with Dr. Huber on June 09 at 11:45am. MEDICATIONS AT DISCHARGE: Norvasc 5mg PO daily Vitamin C 1,000mg PO daily Aspirin 81mg PO daily Brimonidine Tartrate 0.2% Opth one drop OP twice day Vitamin D 2,000 unit PO daily Zetia 10mg PO daily Folic acid 0.5mg PO daily Lasix 40mg PO MoWeFr @0630 Xalatan 1 drop OP bedtime Arava 20mg PO daily Cozaar 50mg PO daily Sodium Bicarbonate 650mg PO twice a day Flomax 0.4mg PO daily Balanced B-100 1 tablet PO daily Levemir Flextouch 40 units SQ at bedtime daily Novolog Mix 70/30FlexPen syringe 20 units SQ daily ALLERGIES: Oxycodone Androgenic Anabolic Atorvastatin Gabapentin NEW PRESCRIPTIONS: Zofran 4mg tablet one tablet every 6 hours PRN nausea/vomiting MEDICATION CHANGES: None DIET INSTRUCTIONS: Regular as tolerated ACTIVITY: Resume as tolerated SMOKING: N/A DISEASE SPECIFIC EDUCATION: Dehydration Gastroenteritis Diet Appointment Prescription HOSPITAL COURSE: This is an 86 year old white male with stage 4 chronic kidney disease who presented to our office with acute nausea and vomiting and dehydration. On date of admission he states that he had already vomited 10 times that day. Again he does have stage 4 chronic kidney disease. He is not yet on dialysis but is easily dehydrated. He was experiencing hypotension and nausea, could not hold his head up. He was subsequently admitted and placed on slow IV fluids D5 1/2 normal saline at 75cc an hour along with Zofran 4mg IV Q 6 hours as needed for nausea as well as Protonix 40mg IV daily. Of the course of the past 48 hours his vomited had subsided. His kidney function is still slightly elevated from baseline. His baseline creatinine is about 4.9. Today on day of discharge it's 5.19. He has been for the past 24 hours able to eat solid food and drink liquids and keep all those down. This morning he states that he isn't experiencing any nausea at all. He does have severe COPD which his shortness of breath has been stable from his baseline his wear oxygen most all the time. This morning on examination his lungs sounds are clear yet diminished this is normal for him. His vital signs have been normal; temperature 98.9, heart rate 84, respiratory rate 18, blood pressure 126/60 and pulse ox 97%. As of last night and this morning he had been up walking around without problems. His weakness had improved. He states that he is ready to go home. We will discharge him home in stable condition today with Zofran 4mg #10 if need them. He is to continue with increased rest and increased fluids to stay at home. We will followup with him in the office next week. He is instructed to go to the emergency room if vomiting resumes. He did not experience any diarrhea during this hospitalization. TIME SPENT: More than 60 minutes. GABRIELLE
--- NOTE | 2017-06-15 07:43 | PN ---
DATE OF SERVICE: 06/04/17 SUBJECTIVE: The patient was seen with the Nurse Practitioner. The patient was hospitalized with acute gastroenteritis. The patient's condition has improved and he eating much better. No nausea and vomiting. Kidney functions are abnormal as expected and improving. The patient is up and about and wants to go home. The patient will be discharged. TIME SPENT: More than 30 minutes. Plan and coordination of the patient's care discussed in the presence of nurse. GABRIELLE
--- NOTE | 2017-06-15 07:44 | PN ---
06/02/17: Level 5 06/03/17: Intermediate 06/04/17: D as in discharge MTDD
== END 2017-06-04 13:00 | disposition home or self-care (01) | DRG 392 ==
LOC: MEDSURG A 13:12
PROVIDERS: ADMIT Internal Medicine; ATTEND Internal Medicine
DX: K52.9 Noninfective gastroenteritis and colitis, unspecified (principal); N18.4 Chronic kidney disease, stage 4 (severe); B40.9 Blastomycosis, unspecified; E86.0 Dehydration; E11.9 Type 2 diabetes mellitus without complications; I48.91 Unspecified atrial fibrillation; J44.9 Chronic obstructive pulmonary disease, unspecified; I50.9 Heart failure, unspecified; D64.9 Anemia, unspecified; M51.26 Other intervertebral disc displacement, lumbar region; I95.9 Hypotension, unspecified; Z90.49 Acquired absence of other specified parts of digestive tract; Z96.0 Presence of urogenital implants; Z79.4 Long term (current) use of insulin
CPT/HCPCS: 36415; 80053; 81001; 82962; 85025; 93005; 93010

== ENCOUNTER 2018-05-21 00:15 | Outpatient (CLI) | payer OTHER | END 2018-05-21 00:16 | disposition home or self-care (01) | LOC: AMBL 00:15 | PROVIDERS: ATTEND Emergency Medicine | DX: R07.9 Chest pain, unspecified (principal); R11.2 Nausea with vomiting, unspecified; K30 Functional dyspepsia; R00.0 Tachycardia, unspecified; I48.91 Unspecified atrial fibrillation; N18.4 Chronic kidney disease, stage 4 (severe) ==